=== PATIENT | female | born 1960 | race Caucasian/White ===

== ENCOUNTER 2017-04-13 13:08 | Observation (INO) ==
--- NOTE | 2017-04-13 13:29 | Emergency Department Note ---
Disposition Clinical Impression: Chest pain Qualifiers: Chest pain type: unspecified Qualified Code(s): R07.9 - Chest pain, unspecified Disposition: Admitted As Inpatient Condition: Fair Forms: ED Satisfaction Letter Time of Disposition: 15:23 SOB HPI - General Chief Complaint: ED Shortness of Breath/Dyspnea Stated Complaint: asthma, cough Time Seen by Provider: 04/13/17 13:17 Source: patient, EMS Limitations: no limitations Nursing Notes Reviewed: Yes Vital Signs Reviewed: Yes - History of Present Illness 56-year-old female history of obesity, hyperlipidemia, former smoker, presents with chest pain at rest for the last several weeks, worse in the last few days, right-sided chest pain radiating to her right arm and right neck. As bad as a 6 out of 10 currently a 3 out of 10. Patient denies shortness of breath, fevers chills, does have a history of asthma but is noted no wheezing, and no respiratory symptoms. Patient is no history of blood clots or OCP use, no recent travel. Only on exam patient is a very flat affect and she is a difficult historian. Pt Subjective Complaint: chest pain Onset (ago): hour(s) Severity: mild Consistency/Duration: intermittent Improves with: nothing Worsens with: nothing Known history of: asthma, other (HLD) Associated symptoms: Reports: chest pain. Denies: pain with inspiration, fever , cough, wheezing, sputum production - Related Data Home Medications Medication Instructions Recorded Confirmed Albuterol Sulfate [Albuterol 2 puff IH Q4H PRN 06/16/16 06/16/16 Inhaler] Benzonatate [Tessalon] 200 mg PO TID 06/16/16 06/16/16 Benztropine [Cogentin] 1 mg PO TID 06/16/16 06/16/16 Estrogens, Conjugated [Premarin] 0.45 mg PO DAILY 06/16/16 06/16/16 Levothyroxine [Synthroid] 88 mcg PO DAILY 06/16/16 06/16/16 Loratadine [Claritin] 10 mg PO DAILY 06/16/16 06/16/16 Montelukast [Singulair] 10 mg PO DAILY 06/16/16 06/16/16 Multivitamin [Multi-Day Vitamins] 1 tab PO DAILY 06/16/16 06/16/16 Naproxen [Naprosyn] 500 mg PO BID 06/16/16 06/16/16 Pantoprazole Sodium [Protonix] 40 mg PO DAILY 06/16/16 06/16/16 RisperiDONE [Risperdal] 3 mg PO TID 06/16/16 06/16/16 clonazePAM [Klonopin] 0.5 mg PO TID 06/16/16 06/16/16 hydrOXYzine HCl [Hydroxyzine HCl] 25 mg PO TID 06/16/16 06/16/16 Previous Rx's Medication Instructions Recorded Ciprofloxacin [Cipro] 500 mg PO BIDAC #10 tablet 06/19/16 predniSONE [PredniSONE] 30 mg PO DAILY #5 tablet 06/19/16 Albuterol Sulfate [Albuterol 2 puff IH Q4HR #1 hfa.aer.ad 12/05/16 Inhaler] Azithromycin [Azithromycin 6-Tab 250 mg PO PER PKG DI #6 tab 12/05/16 Pack] predniSONE [Prednisone] 50 mg PO DAILY #5 tablet 12/05/16 Allergies Allergy/AdvReac Type Severity Reaction Status Date / Time Penicillins Allergy Anaphylaxis Verified 06/16/16 11:48 aspirin AdvReac Gastrointestinal Verified 02/03/17 12:26 Upset haloperidol AdvReac Seizure Verified 02/16/17 12:21 All systems ED: reviewed and negative except as stated. Constitutional: Denies: fever, chills Cardiovascular: Reports: chest pain Respiratory: Denies: cough, dyspnea Gastrointestinal: Reports: as per HPI, nausea. Denies: abdominal pain Genitourinary: Denies: urgency Musculoskeletal: Denies: back pain Integumentary: Denies: rash, abrasion Neurological: Denies: headache Psychiatric: Denies: anxiety Past Medical History - Past Medical History Attestation: Yes The following information was validated with the patient. Source: patient Medical history: Reports: arthritis, asthma, COPD, hyperlipidemia, seizures Surgical history: Reports: cholecystectomy, hysterectomy Psychiatric history: Reports: anxiety, bipolar, depression - Social History Smoking Status: Former smoker Smokeless Tobacco Status: No Alcohol use: Reports: none Drug use: Reports: none Physical Exam Constitutional: alert and oriented, in NAD, vital signs reviewed and wnl Neck: normal inspection, neck is supple, no JVD Resp: normal chest inspection, CTA bilaterally, no resp distress, no wheezes/ rales/rhonchi CV: RRR, no murmurs/gallops/rubs, S1 and S2 heard Extremity: +2 bilateral radial and posterial tibial pulses, no pedal edema GI: normal inspection, Soft, NTND, no peritoneal signs, no palpable abdominal aortic aneurysm Back: normal inspection, no tenderness to palpation Neuro: A&O3, no gross motor or sensory deficits bilaterally\ Psych: flat affect MSK: normal inspection, bilateral UE and LE with normal ROM Skin: No rashes, skin warm, dry, intacts - General Limitations: no limitations General appearance: alert, in no apparent distress Course Course Narrative: 56-year-old female with chest pain at rest, heart score is 4, for history age risk factors, she does not meet perc criteria because of her age, therefore we will get a d-dimer reassessed - Reevaluation(s) Reevaluation #1: D-dimer negative, admitting to medicine service for chest pain rule out. Time: 15:23 Vital Signs Temperature 98.4 F 04/13/17 13:09 Pulse Rate 80 04/13/17 13:09 Respiratory Rate 16 04/13/17 13:09 Blood Pressure 115/84 04/13/17 13:09 O2 Sat by Pulse Oximetry 98 04/13/17 13:09 Temperature 98.4 F 04/13/17 13:09 Pulse Rate 80 04/13/17 13:09 Respiratory Rate 16 04/13/17 13:09 Blood Pressure 115/84 04/13/17 13:09 O2 Sat by Pulse Oximetry 98 04/13/17 13:09 Oxygen Delivery Oxygen Delivery Room Air Shortness of Breath/Dyspnea - [facility] Narrative Medical decision making narrative: 56-year-old female admitted to chest pain rule out to Dr. Marquez in stable condition at the time of ED disposition no ischemic changes troponin negative D dimer negative - Differential Diagnosis Likely: acute exacerbation of chronic obstructive airways disease, congestive heart failure, pneumonia, pulmonary embolism - Medical Records Medical records reviewed: Yes I reviewed the patient's medical records. - Lab Data Lab results reviewed: Yes I reviewed the patient's lab results. Result diagrams: 04/13/17 13:38 04/13/17 13:38 Lab Results 04/13/17 04/13/17 04/13/17 Range/Units 13:38 13:38 13:38 WBC 12.2 H (4.3-11.1) K/mcL RBC 4.29 (3.82-4.97) M/mcL Hgb 13.4 (11.5-15.4) g/dL Hct 41.2 (35.3-44.9) % MCV 96.0 (83.0-100.0) fL MCH 31.2 (28.0-33.3) pg MCHC 32.5 (31.6-35.5) g/dL RDW 12.5 (11.5-14.5) % Plt Count 223 (140-400) K/mcL MPV 10.6 (9.4-12.4) fL Immature Gran % 0.4 (0-4) % Seg Neutrophils % 74.5 % Lymphocytes % 17.6 % Monocytes % 6.1 % Eosinophils % 1.2 % Basophils % 0.2 % Neutrophils # 9.1 H (1.6-8.9) K/mcL Lymphocytes # 2.2 (0.6-4.6) K/mcL Monocytes # 0.7 (0.0-1.3) K/mcL Eosinophils # 0.2 (0.0-0.6) K/mcL Basophils # 0.0 (0.0-0.2) K/mcL D-Dimer 289 (0-500) ng/mLFEU Sodium (136-145) mEq/L Potassium (3.5-4.5) mEq/L Chloride (98-109) mEq/L Carbon Dioxide (19-29) mEq/L BUN (7-20) mg/dL Creatinine (0.57-1.11) mg/dL Est GFR ( Amer) (> 60) Est GFR (Non-Af Amer) (> 60) BUN/Creatinine Ratio (6-26) Glucose (70-99) mg/dL Calculated Osmolality (280-300) Calcium (8.6-10.8) mg/dL Troponin I (0-0.03) ng/mL B-Natriuretic Peptide 45 (0-100) pg/mL 04/13/17 04/13/17 Range/Units 13:38 13:38 WBC (4.3-11.1) K/mcL RBC (3.82-4.97) M/mcL Hgb (11.5-15.4) g/dL Hct (35.3-44.9) % MCV (83.0-100.0) fL MCH (28.0-33.3) pg MCHC (31.6-35.5) g/dL RDW (11.5-14.5) % Plt Count (140-400) K/mcL MPV (9.4-12.4) fL Immature Gran % (0-4) % Seg Neutrophils % % Lymphocytes % % Monocytes % % Eosinophils % % Basophils % % Neutrophils # (1.6-8.9) K/mcL Lymphocytes # (0.6-4.6) K/mcL Monocytes # (0.0-1.3) K/mcL Eosinophils # (0.0-0.6) K/mcL Basophils # (0.0-0.2) K/mcL D-Dimer (0-500) ng/mLFEU Sodium 140 (136-145) mEq/L Potassium 3.8 (3.5-4.5) mEq/L Chloride 103 (98-109) mEq/L Carbon Dioxide 31 H (19-29) mEq/L BUN 19 (7-20) mg/dL Creatinine 0.75 (0.57-1.11) mg/dL Est GFR ( Amer) > 60 (> 60) Est GFR (Non-Af Amer) > 60 (> 60) BUN/Creatinine Ratio 25 (6-26) Glucose 104 H (70-99) mg/dL Calculated Osmolality 293 (280-300) Calcium 9.6 (8.6-10.8) mg/dL Troponin I 0.00 (0-0.03) ng/mL B-Natriuretic Peptide (0-100) pg/mL - Radiology Data Radiology results reviewed: Yes I reviewed the patient's radiology results. Chest X-Ray 04/13/17 13:30 IMPRESSION: No acute process. D/ / Tejas Sawyer MD / Tejas Sawyer MD Interpreting Provider: Tejas Sawyer MD - EKG Data EKG attestation: Yes I reviewed and interpreted this EKG. EKG shows normal: Reports: sinus rhythm Rate: Reports: normal (76 bpm 167 PRQS [address] segment elevations or depressions.)
[2017-04-13 13:43] LABS: Basophils % 0.2 %; Eosinophils # 0.2 K/mcL (0.0-0.6); Eosinophils % 1.2 %; Hematocrit 41.2 % (35.3-44.9); Hemoglobin 13.4 g/dL (11.5-15.4); Immature Granulocytes % 0.4 % (0-4); Lymphocytes # 2.2 K/mcL (0.6-4.6); Lymphocytes % 17.6 %; Mean Corpuscular HGB Conc 32.5 g/dL (31.6-35.5); Mean Corpuscular Hemoglobin 31.2 pg (28.0-33.3); Mean Platelet Volume 10.6 fL (9.4-12.4); Monocytes # 0.7 K/mcL (0.0-1.3); Monocytes % 6.1 %; Neutrophils # 9.1 K/mcL (1.6-8.9); Platelet Count 223 K/mcL (140-400); Red Blood Count 4.29 M/mcL (3.82-4.97); Red Cell Distribution Width 12.5 % (11.5-14.5); Segmented Neutrophils % 74.5 %
[2017-04-13 13:59] LABS: BUN/Creatinine Ratio 25 (6-26); Blood Urea Nitrogen 19 mg/dL (7-20); Calcium 9.6 mg/dL (8.6-10.8); Carbon Dioxide 31 mEq/L (19-29); Chloride 103 mEq/L (98-109); Glucose 104 mg/dL (70-99); Osmolality,Calculated 293 (280-300); Potassium 3.8 mEq/L (3.5-4.5); Sodium 140 mEq/L (136-145); eGFR For African Americans > 60 (> 60); eGFR For Non-African Americans > 60 (> 60)
--- NOTE | 2017-04-13 14:55 | Emergency Department Note ---
START Narrative - START START: I examined this patient and my medical decision-making was reviewed with the PROPERTY TECHNICIAN/PA/Advanced Practice Nurse/Resident Physician. I agree with the documented findings, disposition and treatment plan as described except to the extent set forth below. ED attending note: Patient seen with emergency medicine resident Dr. SANCHES. Please see a copy of his note for details of the H&P, evaluation, management and disposition of this patient. We independently had [id number] contact with the patient Briefly: A 56-year-old female with a flat affect history of asthma complaining of chest discomfort. Heart school about 4. EKG shows no acute ischemic changes. Troponin and d-dimer and chest x-ray are pending. Disposition pending.
[2017-04-13] MEDS ORDERED: Nitroglycerin 0.4 MG TAB.SUBL SL ONE (15:14)
[2017-04-13] MEDS ORDERED: Acetaminophen 325 MG TABLET PO PRN (16:27)
[2017-04-13] MEDS ORDERED: Naloxone 0.4 MG/ML INJ IVP PRN (16:27)
[2017-04-13] MEDS ORDERED: hydrOXYzine pamoate 25 MG CAPSULE PO PRN (16:37)
[2017-04-13] MEDS ORDERED: Ipratropium/Albuterol Neb 3 ML IH PRN (16:39)
[2017-04-13] MEDS: *HR* Heparin 5,000 UNIT/ML VIAL SQ SCH (17:51)
--- NOTE | 2017-04-13 19:23 | Internal Med History&Physical ---
Date of Encounter: 04/13/17 Time of Encounter: 16:00 Assessment and Plan (1) Asthma attack Current visit: Yes Status: Acute Patient has a one episode of shortness of breath. Relieved after treatment. No wheezing on exam. Will continue home asthma medications. (2) Bipolar disorder Current visit: Yes Status: Acute Continue home medications Qualifiers: Active/Remission status: in full remission Most recent bipolar episode type : mixed Qualified Code(s): F31.78 - Bipolar disorder, in full remission, most recent episode mixed (3) DVT prophylaxis Current visit: Yes Status: Acute Heparin subcutaneously (4) Chest pain Current visit: Yes Status: Acute Patient has a chest pain on the right chest wall. Tenderness on palpation. Consider skeletal muscular pain. However, need to rule out other severe conditions. - Chest x-ray and EKG unremarkable. - We will place patient on continuous cardiac monitoring. - track 3 sets of troponin Qualifiers: Chest pain type: intercostal pain Qualified Code(s): R07.82 - Intercostal pain Internal Medicine - H&P: HPI Chief complaint: Chest pain Admitted From: Home Plans for Post Hospital Care: Home History of present illness: Ms. Santana is a 56 year old female present to ER for chest pain and shortness of breath. Patient has history of asthma COPD. Patient said that the chest pain and shortness of breath started from this afternoon 12:30 pm. EMS was called and the patient was treated with nebulizer. Patient was sent to ER. Patient shortness of breath has improved after treatment, but still complaining of chest pain. The pain is located on the right side of chest, sharp, radiated to her right arm, inducible by palpation on right chest wall. Patient has nausea but no vomiting. Denies fibrosis. Patient has a mild cough with a whitish sputum. Patient denies fever, sore throat, and runny nose. Past Med Surg Social Fam HX - Past Medical History Medical history: arthritis, asthma, COPD, hyperlipidemia, seizures Psychiatric history: anxiety, bipolar, depression - Past Surgical History Surgical History: cholecystectomy, hysterectomy - Social History Smoking Status: Former smoker Smokeless Tobacco Status: No Alcohol use: none Drug use: none - Family History Mother Living Status: Hx Family Endocrine Disorder: Yes ("kidney disease") Internal Medicine - H&P: Meds Benztropine [Cogentin] 1 mg PO TID 06/16/16 [History] Estrogens, Conjugated [Premarin] 0.45 mg PO DAILY 06/16/16 [History] Levothyroxine [Synthroid] 88 mcg PO QAM 06/16/16 [History] Loratadine [Claritin] 10 mg PO DAILY 06/16/16 [History] Montelukast [Singulair] 10 mg PO QPM 06/16/16 [History] Multivitamin [Multi-Day Vitamins] 1 tab PO DAILY 06/16/16 [History] Pantoprazole Sodium [Protonix] 40 mg PO DAILY 06/16/16 [History] RisperiDONE [Risperdal] 3 mg PO BID 06/16/16 [History] clonazePAM [Klonopin] 0.5 mg PO TID 06/16/16 [History] hydrOXYzine HCl [Hydroxyzine HCl] 25 mg PO TID PRN 06/16/16 [History] Acetaminophen [Tylenol] 1,000 mg PO TID 04/13/17 [History] Albuterol Neb [Proventil Neb] 2.5 mg IH TID 04/13/17 [History] Albuterol Sulfate [Albuterol Inhaler] 2 puff IH Q4HR PRN 04/13/17 [History] Budesonide/Formoterol 160/4.5 [Symbicort 160/4.5] 2 puff IH BIDR 04/13/17 [ History] Cyclosporine [Restasis] 1 each OP BID 04/13/17 [History] Naproxen [Naprosyn] 250 mg PO BID 04/13/17 [History] Allergies Penicillins Allergy (Verified 06/16/16 11:48) Anaphylaxis aspirin Adverse Reaction (Verified 02/03/17 12:26) Gastrointestinal Upset caffeine Adverse Reaction (Verified 04/13/17 16:25) Itching haloperidol Adverse Reaction (Verified 02/16/17 12:21) Seizure All Systems PM: A 10-system review of systems was performed and is negative for pertinent findings except as documented above in the HPI. - Constitutional Vitals: Temp Pulse Resp BP Pulse Ox 98.7 F 86 16 133/87 93 04/13/17 16:24 04/13/17 16:24 04/13/17 16:24 04/13/17 16:24 04/13/17 16:24 General appearance: Present: A&O X 3, no acute distress, answers questions appropriately - Head Head exam: Present: atraumatic, normocephalic - Eye Eye exam: Present: PERRL, conjuntiva pink, sclera anicteric Pupils: Present: PERRL - Neck Neck exam general surgery: Present: supple, trachea midline. Absent: lymphadenopathy - Respiratory Respiratory exam: Present: chest wall tenderness, CTAB. Absent: accessory muscle use, rales, rhonchi, wheezes - Cardiovascular Cardiovascular exam: Present: RRR, +S1, +S2. Absent: diastolic murmur, gallop, rubs, systolic murmur - GI/Abdominal GI/Abdominal exam: Present: normal bowel sounds, soft, no peritoneal signs. Absent: distended, tenderness - Extremities Exam Extremities exam: Present: warm, radial pulses palpable and symetrical. Absent : calf tenderness, cyanotic, pedal edema - Neurological Exam Neurological exam: Present: CN II-XII intact, oriented X3, no focal deficits. Absent: pronater drift, facial droop, speech deficit - Skin Skin exam: Present: dry, intact Internal Med - H&P Results - Labs CBC & Chem 7: 04/13/17 13:38 04/13/17 13:38
[2017-04-13] MEDS: clonazePAM 0.5 MG TABLET PO SCH (21:39)
[2017-04-13] MEDS: RisperiDAL 3 MG TABLET PO SCH (21:47)
[2017-04-13] MEDS: Budesonide/Formoterol 160/4.5 MDI IH SCH (23:01)
[2017-04-13] MEDS: Albuterol 2.5 MG/3 ML NEBULIZER IH SCH (23:02)
[2017-04-14 02:13] LABS: Basophils % 0.3 %; Eosinophils # 0.2 K/mcL (0.0-0.6); Eosinophils % 2.2 %; Hematocrit 39.9 % (35.3-44.9); Immature Granulocytes % 0.3 % (0-4); Lymphocytes # 2.4 K/mcL (0.6-4.6); Mean Corpuscular HGB Conc 32.6 g/dL (31.6-35.5); Mean Corpuscular Hemoglobin 31.3 pg (28.0-33.3); Mean Corpuscular Volume 95.9 fL (83.0-100.0); Monocytes # 0.5 K/mcL (0.0-1.3); Monocytes % 7.2 %; Platelet Count 215 K/mcL (140-400); Red Blood Count 4.16 M/mcL (3.82-4.97); Red Cell Distribution Width 12.4 % (11.5-14.5)
[2017-04-14 02:26] LABS: BUN/Creatinine Ratio 20 (6-26); Blood Urea Nitrogen 14 mg/dL (7-20); Calcium 9.3 mg/dL (8.6-10.8); Carbon Dioxide 29 mEq/L (19-29); Chloride 105 mEq/L (98-109); Glucose 89 mg/dL (70-99); Osmolality,Calculated 288 (280-300); Potassium 3.9 mEq/L (3.5-4.5); Sodium 139 mEq/L (136-145); eGFR For African Americans > 60 (> 60); eGFR For Non-African Americans > 60 (> 60)
[2017-04-14] MEDS ORDERED: Ondansetron 4 MG/2 ML VIAL IVP PRN (03:52)
[2017-04-14] MEDS: *HR* Heparin 5,000 UNIT/ML VIAL SQ SCH ×2 (06:06→18:48)
[2017-04-14] MEDS: Budesonide/Formoterol 160/4.5 MDI IH SCH ×2 (08:52→20:20)
[2017-04-14] MEDS: Albuterol 2.5 MG/3 ML NEBULIZER IH SCH ×3 (08:53→20:31)
[2017-04-14] MEDS: RisperiDAL 3 MG TABLET PO SCH ×2 (10:11→21:08)
[2017-04-14] MEDS: Multivit/Ca/Min/Fe/FA 1 TAB TABLET PO SCH (10:11)
[2017-04-14] MEDS: Loratadine 10 MG TABLET PO SCH (10:11)
[2017-04-14] MEDS: clonazePAM 0.5 MG TABLET PO SCH ×3 (10:12→21:09)
--- NOTE | 2017-04-14 17:36 | Internal Med Progress Note ---
Date of Encounter: 04/14/17 Time of Encounter: 17:33 - Assessment and plan (1) Chest pain Current Visit: Yes Status: Acute Assessment and plan: Patient had a chest pain Of days back. It was atypical chest pain. LUCILLE: 0 Hospitalized for worsening shortness of breath, cough and chest pain. Likely COPD exacerbation. 3 troponins negative. Echocardiogram ordered and pending. Plan: Will follow echocardiogram. Qualifiers: Chest pain type: intercostal pain Qualified Code(s): R07.82 - Intercostal pain (2) Acute exacerbation of chronic obstructive airways disease Current Visit: No Status: Chronic Assessment and plan: Likely COPD exacerbation. On antibiotics: Levofloxacin 750 mg by mouth. Initial steroids. Inhale bronchodilators. Plan: We will continue to monitor closely. (3) Bipolar disorder Current Visit: Yes Status: Acute Assessment and plan: We will resume home medications. Qualifiers: Active/Remission status: in full remission Most recent bipolar episode type : mixed Qualified Code(s): F31.78 - Bipolar disorder, in full remission, most recent episode mixed (4) DVT prophylaxis Current Visit: Yes Status: Acute Assessment and plan: heparin Medical decision making: Patient has mild to moderate risk of worsening in spite of being on appropriate treatment due to underlying comorbidities - Subjective Interval history: Patient seen and examined. Chart reviewed. Patient denies chest pain, shortness of breath, abdominal pain, nausea, vomiting , diarrhea or dizziness. - Constitutional Vitals: Temp Pulse Resp BP Pulse Ox 97.9 F 74 16 118/67 95 04/14/17 14:38 04/14/17 14:38 04/14/17 15:54 04/14/17 14:38 04/14/17 15:54 General appearance: Present: A&O X 3, no acute distress, answers questions appropriately - Head Head exam: Present: atraumatic, normocephalic - Eye Eye exam: Present: PERRL, conjuntiva pink, sclera anicteric Pupils: Present: PERRL - Neck Neck exam general surgery: Present: supple, trachea midline. Absent: lymphadenopathy - Respiratory Respiratory exam: Present: CTAB. Absent: accessory muscle use, rales, rhonchi, wheezes - Cardiovascular Cardiovascular exam: Present: RRR, +S1, +S2. Absent: diastolic murmur, gallop, rubs, systolic murmur - GI/Abdominal GI/Abdominal exam: Present: normal bowel sounds, soft, no peritoneal signs. Absent: distended, tenderness - Extremities Exam Extremities exam: Present: warm, radial pulses palpable and symetrical. Absent : calf tenderness, cyanotic, pedal edema - Neurological Exam Neurological exam: Present: CN II-XII intact, oriented X3, no focal deficits. Absent: pronater drift, facial droop, speech deficit - Skin Skin exam: Present: dry, intact Internal Medicine: Result - Labs CBC & Chem 7: 04/14/17 01:45 04/14/17 01:45 Labs: Short CBC 04/14/17 Range/Units 01:45 WBC 7.1 (4.3-11.1) K/mcL Hgb 13.0 (11.5-15.4) g/dL Hct 39.9 (35.3-44.9) % Plt Count 215 (140-400) K/mcL Neutrophils # 4.0 (1.6-8.9) K/mcL BMP 04/14/17 01:45 Sodium 139 Potassium 3.9 Chloride 105 Carbon Dioxide 29 BUN 14 Creatinine 0.71 Glucose 89 Calcium 9.3 Cardiac Enzymes 04/13/17 04/14/17 Range/Units 19:32 01:45 Troponin I 0.00 0.00 (0-0.03) ng/mL - ABG Interpretation ABG results: PT/INR, D-dimer D-Dimer 289 ng/mLFEU (0-500) 04/13/17 13:38 Consult Discharge Plan - Plan Referrals: Janeen Patel MD [Primary Care Provider] -
[2017-04-14] MEDS: levoFLOXacin 750 MG TABLET PO SCH (18:48)
[2017-04-15] MEDS: *HR* Heparin 5,000 UNIT/ML VIAL SQ SCH (05:06)
[2017-04-15] MEDS: RisperiDAL 3 MG TABLET PO SCH (07:45)
[2017-04-15] MEDS: clonazePAM 0.5 MG TABLET PO SCH (07:45)
[2017-04-15] MEDS: Multivit/Ca/Min/Fe/FA 1 TAB TABLET PO SCH (07:45)
[2017-04-15] MEDS: levoFLOXacin 750 MG TABLET PO SCH (07:45)
[2017-04-15] MEDS: Loratadine 10 MG TABLET PO SCH (07:45)
[2017-04-15] MEDS: Budesonide/Formoterol 160/4.5 MDI IH SCH (08:24)
[2017-04-15] MEDS: Albuterol 2.5 MG/3 ML NEBULIZER IH SCH (08:24)
[2017-04-15 11:13] VITALS: BP 120/86
--- NOTE | 2017-04-15 11:40 | Discharge Summary ---
Date of Encounter: 04/15/17 Time of Encounter: 11:38 - Discharge Diagnosis (1) Chest pain Priority: Primary Status: Acute Qualifiers: Chest pain type: intercostal pain Qualified Code(s): R07.82 - Intercostal pain (2) Acute exacerbation of chronic obstructive airways disease Priority: Primary Status: Chronic (3) Bipolar disorder Priority: Secondary Status: Acute Qualifiers: Active/Remission status: in full remission Most recent bipolar episode type : mixed Qualified Code(s): F31.78 - Bipolar disorder, in full remission, most recent episode mixed (4) DVT prophylaxis Priority: Secondary Status: Acute - Discharge Medications Prescriptions: levoFLOXacin [Levaquin] 750 mg PO DAILY #4 tab Home Medications: Benztropine [Cogentin] 1 mg PO TID 06/16/16 [History] Estrogens, Conjugated [Premarin] 0.45 mg PO DAILY 06/16/16 [History] Levothyroxine [Synthroid] 88 mcg PO QAM 06/16/16 [History] Loratadine [Claritin] 10 mg PO DAILY 06/16/16 [History] Montelukast [Singulair] 10 mg PO QPM 06/16/16 [History] Multivitamin [Multi-Day Vitamins] 1 tab PO DAILY 06/16/16 [History] Pantoprazole Sodium [Protonix] 40 mg PO DAILY 06/16/16 [History] RisperiDONE [Risperdal] 3 mg PO BID 06/16/16 [History] clonazePAM [Klonopin] 0.5 mg PO TID 06/16/16 [History] hydrOXYzine HCl [Hydroxyzine HCl] 25 mg PO TID PRN 06/16/16 [History] Acetaminophen [Tylenol] 1,000 mg PO TID 04/13/17 [History] Albuterol Neb [Proventil Neb] 2.5 mg IH TID 04/13/17 [History] Albuterol Sulfate [Albuterol Inhaler] 2 puff IH Q4HR PRN 04/13/17 [History] Budesonide/Formoterol 160/4.5 [Symbicort 160/4.5] 2 puff IH BIDR 04/13/17 [ History] Cyclosporine [Restasis] 1 each OP BID 04/13/17 [History] Naproxen [Naprosyn] 250 mg PO BID 04/13/17 [History] levoFLOXacin [Levaquin] 750 mg PO DAILY #4 tab 04/15/17 [Rx] Allergies/Adverse Reactions: Allergies Penicillins Allergy (Verified 06/16/16 11:48) Anaphylaxis aspirin Adverse Reaction (Verified 02/03/17 12:26) Gastrointestinal Upset caffeine Adverse Reaction (Verified 04/13/17 16:25) Itching haloperidol Adverse Reaction (Verified 02/16/17 12:21) Seizure Procedures/tests Complete & Pending: Procedures Performed prior 72 hours Category Date Time Status CT angio neck [CT] Routine Cat Scan 04/15/17 09:38 Completed CTA chest [CT angio chest] [CT] Routine Cat Scan 04/15/17 09:38 Completed EV echocardiogram Routine Y 04/14/17 11:15 Completed Date of admission: 04/13/17 15:20 Primary care physician: Janeen Patel, Discharging clinician: Jason Jones - Patient Status Disposition: Home, Self-Care Condition: Fair Functional capacity at discharge: independent ambulation Overall status at discharge: patient is progressing back to baseline - Discharge Instructions Follow Up With: Janeen Patel MD [Primary Care Provider] - - Diet and Activity Activity: increase activity as tolerated Diet: low fat, low cholesterol, low salt diet Interval History: Ms. Santana is a 56 year old female present to ER for chest pain and shortness of breath. Patient has history of asthma COPD. Patient said that the chest pain and shortness of breath started from this afternoon 12:30 pm. EMS was called and the patient was treated with nebulizer. Patient was sent to ER. Patient shortness of breath has improved after treatment, but still complaining of chest pain. The pain is located on the right side of chest, sharp, radiated to her right arm, inducible by palpation on right chest wall. Patient has nausea but no vomiting. Denies fibrosis. Patient has a mild cough with a whitish sputum. Patient denies fever, sore throat, and runny nose. Hospital course: patient was hospitalized. started on Levofloxacin, Inhaled steroids and bronchodialators. she responded well to treatment. In view of chest pain, she underwent ECHO and noted that she has atheresclerotic disease of aorta and CCA. CTA of aorta and neck arteries ordered. this study was negative for any significant obstructive lesions. plan home today levofloxacin for 4 days continue ICS and BDAs. follow up with PCP in 1-2 weeks all questions answered. - Time Spent with Patient Total time spent providing and/or coordinating discharge services: - Constitutional Vitals: Temp Pulse Resp BP Pulse Ox 97.7 F 96 18 120/86 98 04/15/17 11:11 04/15/17 11:11 04/15/17 11:11 04/15/17 11:11 04/15/17 11:11 General appearance: Present: A&O X 3, no acute distress, answers questions appropriately - Head Head exam: Present: atraumatic, normocephalic - Eye Eye exam: Present: PERRL, conjuntiva pink, sclera anicteric Pupils: Present: PERRL - Neck Neck exam general surgery: Present: supple, trachea midline. Absent: lymphadenopathy - Respiratory Respiratory exam: Present: CTAB. Absent: accessory muscle use, rales, rhonchi, wheezes - Cardiovascular Cardiovascular exam: Present: RRR, +S1, +S2. Absent: diastolic murmur, gallop, rubs, systolic murmur - GI/Abdominal GI/Abdominal exam: Present: normal bowel sounds, soft, no peritoneal signs. Absent: distended, tenderness - Extremities Exam Extremities exam: Present: warm, radial pulses palpable and symetrical. Absent : calf tenderness, cyanotic, pedal edema - Neurological Exam Neurological exam: Present: CN II-XII intact, oriented X3, no focal deficits. Absent: pronater drift, facial droop, speech deficit - Skin Skin exam: Present: dry, intact
--- NOTE | 2017-04-15 15:30 | Electrocardiograph Report ---
[facility] Test Date: 2017-04-13 Pat Name: Carolin Santana Department: 105 Room: [facility] Gender: F Complaint Inspector: : 1960 Requested By: Min Reagan Order Number: [id number] Reading MD: Eddie Cardenas MD Measurements Intervals [place] Rate: 76 P: 42 [place]: 167 QRS: -22 QRSD: 90 T: 23 QT: 387 QTc: 418 Interpretive Statements SINUS RHYTHM BORDERLINE LEFT AXIS DEVIATION [QRS AXIS < -20] LOW QRS VOLTAGE IN PRECORDIAL LEADS [QRS DEFLECTION < 1.0 mV IN CHEST LEADS] Electronically Signed On 04-15-2017 15:28:36 EDT by Eddie Cardenas MD
== END 2017-04-15 13:54 | disposition home or self-care (01) ==
LOC: EMEROO 13:08 → 3NENU 13:08
PROVIDERS: ADMIT Internal Medicine; ATTEND Internal Medicine

== ENCOUNTER 2018-07-19 11:07 | Inpatient (IN) ==
--- NOTE | 2018-07-19 11:27 | Emergency Department Note ---
Disposition Clinical Impression: Elevated troponin, Psychiatric illness, Altered mental status Disposition: Admitted As Inpatient Condition: Fair Altered Mental Status HPI - General Chief Complaint: ED Altered Mental Status Stated Complaint: AMS Time Seen by Provider: 07/19/18 11:15 Source: family (Patient ) Mode of arrival: EMS Limitations: altered mental status Nursing Notes Reviewed: Yes Vital Signs Reviewed: Yes - History of Present Illness HPI Narrative: Patient is a 57-year-old female [facility] for "altered mental status" the patient's states that she was "just not acting herself today" and called EMS for transport. EMS stated they were unable to obtain any further history from the patient's for the patient, and nursing staff state that the patient has only verbalized her name and date of -as well stating that she has a history of anxiety. Patient is known to have a history of catatonic schizophrenia was similar episodes in the past. Upon initial examination the patient is sitting upright in hospital bed her eyes are open and she will make eye contact when verbally prompted. Otherwise the patient is staring straight ahead without significant engagement to her environment. The patient answers questioning with intermittent head nods after several problems. The patient nodded affirmation of headache, chest pain, and shortness of breath and gave negative affirmation by shaking her head when asked about abdominal pain, numbness or tingling, or blurred vision. The patient did not respond to further review of systems questioning. MD complaint: altered mental status Onset (ago): day(s) Timing confirmed by: family member Pain Severity: unable Consistency of Symptoms: unknown Context: unknown Associated symptoms: Reports: chest pain, headaches, shortness of breath - Related Data Home Medications Medication Instructions Recorded Confirmed Levothyroxine [Synthroid] 88 mcg PO QAM 06/16/16 07/19/18 Loratadine [Claritin] 10 mg PO DAILY 06/16/16 07/19/18 Montelukast [Singulair] 10 mg PO QPM 06/16/16 07/19/18 Multivitamin [Multi-Day Vitamins] 1 tab PO DAILY 06/16/16 07/19/18 Acetaminophen [Tylenol] 1,000 mg PO TID 04/13/17 07/19/18 Albuterol Neb [Proventil Neb] 2.5 mg IH TID 04/13/17 07/19/18 Albuterol Sulfate [Albuterol 2 puff IH Q4HR PRN 04/13/17 07/19/18 Inhaler] Budesonide/Formoterol 160/4.5 2 puff IH BIDR 04/13/17 07/19/18 [Symbicort 160/4.5] Cyclosporine [Restasis] 1 drop BOTH EYES BID 04/13/17 07/19/18 Benztropine Mesylate 1 mg PO BID 07/19/18 07/19/18 Buspirone HCl [Buspar] 5 mg PO BID 07/19/18 07/19/18 Estrogens, Conjugated [Premarin] 0.3 mg PO DAILY 07/19/18 07/19/18 Pantoprazole Sodium [Protonix] 40 mg PO DAILY 07/19/18 07/19/18 hydrOXYzine HCl [Hydroxyzine HCl] 25 mg PO TID PRN 07/19/18 07/19/18 risperiDONE [RisperDAL] 3 mg PO BID 07/19/18 07/19/18 Allergies Allergy/AdvReac Type Severity Reaction Status Date / Time Penicillins Allergy Anaphylaxis Verified 07/03/18 15:12 aspirin AdvReac Gastrointestinal Verified 07/03/18 15:12 Upset caffeine AdvReac Itching Verified 07/03/18 15:12 haloperidol AdvReac Seizure Verified 07/03/18 15:12 Review of Systems: As Per HPI Limitations: ROS unobtainable due to patients medical condition Past Medical History - Past Medical History Medical history: Reports: asthma Surgical history: Reports: cholecystectomy, hysterectomy Psychiatric history: Reports: anxiety, bipolar, depression - Social History Smoking Status: 2nd Hand Smoke Exposure Smokeless Tobacco Status: No Alcohol use: Reports: none Drug use: Reports: none Physical Exam - General Limitations: altered mental status General appearance: alert, obtunded - Head Head exam: atraumatic, normocephalic - Eye Eye exam: Present: normal appearance, PERRL, EOMI. Absent: scleral icterus, conjunctival injection - Chest Chest inspection: Present: symmetric chest wall rise - Respiratory Respiratory exam: Present: normal lung sounds bilaterally. Absent: respiratory distress, accessory muscle use, prolonged expiratory phase - Cardiovascular Cardiovascular exam: Present: regular rate, normal rhythm, normal heart sounds, +S1, +S2. Absent: JVD, +S3, +S4 - Abdominal Exam Abdominal exam: Present: soft, tenderness, normal bowel sounds. Absent: distention, guarding, rebound, rigidity Abdominal tenderness: Present: LUQ, LLQ - Neurological Exam Neurological exam: Present: other (Patient is alert but minimally responsive to verbal stimuli, staring straight ahead with intermittent deformations of questioning with head nods. Pulse, motor, sensation are intact in the 4 extremities bilaterally, cranial nerves II through XII are grossly intact, strength equal bilaterally, there are no noted areas of focal defects.) - Skin Skin exam: Present: warm, dry, intact, normal color. Absent: cyanosis, diaphoresis Course Course Narrative: Patient history, review systems and physical exam are concerning for cardiac or metabolic pathology-especially in the setting of altered mental status given her psychiatric history. CBC, BMP, LFT, LDH, EKG, troponin, chest x-ray and head CT to evaluate for metabolic versus cardiopulmonary and intracranial etiology. Vital Signs Temperature 98.3 F 07/19/18 11:15 Pulse Rate 92 07/19/18 11:15 Respiratory Rate 18 07/19/18 11:15 Blood Pressure 107/83 07/19/18 11:15 O2 Sat by Pulse Oximetry 100 07/19/18 11:15 Temperature 98.3 F 07/19/18 11:15 Pulse Rate 86 07/19/18 17:14 Respiratory Rate 16 07/19/18 17:14 Blood Pressure 111/81 07/19/18 17:14 O2 Sat by Pulse Oximetry 99 07/19/18 17:14 Oxygen Delivery Oxygen Delivery Room Air Altered Mental Status - MDM Narrative Medical decision making narrative: Patient will be admitted for altered mental status. Hospital consulted and accepted admission. - Lab Data Lab results reviewed: Yes I reviewed the patient's lab results. Result diagrams: 07/19/18 12:40 07/19/18 12:40 Lab Results 07/19/18 07/19/18 07/19/18 Range/Units 12:33 12:33 12:33 WBC (4.3-11.1) K/mcL RBC (3.82-4.97) M/mcL Hgb (11.5-15.4) g/dL Hct (35.3-44.9) % MCV (83.0-100.0) fL MCH (28.0-33.3) pg MCHC (31.6-35.5) g/dL RDW (11.5-14.5) % Plt Count (140-400) K/mcL MPV (9.4-12.4) fL Immature Gran % (0-4) % Seg Neutrophils % % Lymphocytes % % Monocytes % % Eosinophils % % Basophils % % Neutrophils # (1.6-8.9) K/mcL Lymphocytes # (0.6-4.6) K/mcL Monocytes # (0.0-1.3) K/mcL Eosinophils # (0.0-0.6) K/mcL Basophils # (0.0-0.2) K/mcL Sodium (136-145) mEq/L Potassium (3.5-5.1) mEq/L Chloride (98-107) mEq/L Carbon Dioxide (23-29) mEq/L BUN (6-20) mg/dL Creatinine (0.60-1.20) mg/dL Est GFR ( Amer) (> 60) Est GFR (Non-Af Amer) (> 60) BUN/Creatinine Ratio (6-26) Glucose (70-105) mg/dL Calculated Osmolality (280-300) Calcium (8.6-10.3) mg/dL Venous Ioniz Calcium (1.15-1.35) mmol/L Phosphorus (2.7-4.5) mg/dL Magnesium (1.6-2.6) mg/dL Total Bilirubin (0.3-1.0) mg/dL Direct Bilirubin (0.0-0.2) mg/dL Indirect Bilirubin (0.0-1.2) mg/dL AST (13-39) Units/L ALT (7-52) Units/L Alkaline Phosphatase (34-104) Units/L Lactate Dehydrogenase (140-271) Units/L Troponin I (< 0.04) ng/mL Serum Total Protein (6.4-8.9) g/dL Albumin (3.5-5.7) g/dL Globulin (2.4-3.5) g/dL Albumin/Globulin Ratio (1.1-2.2) Urine Color Yellow (Yellow) Urine Clarity Clear (Clear) Urine pH 6.0 (5.0-8.0) pH Units Ur Specific [place] >= 1.030 H (1.010-1.025) Urine Protein 100 H (Neg-Trace) mg/dL Urine Glucose (UA) 100 H (Normal) mg/dL Urine Ketones Trace H (Negative) mg/dL Urine Blood Negative (Negative) Urine Nitrite Negative (Negative) Urine Bilirubin Small H (Negative) Urine Urobilinogen Normal (Normal) mg/dL Ur Leukocyte Esterase Small H (Negative) Urine Microscopic RBC 0-3 (0-3) per hpf Urine Microscopic WBC 0-3 (0-3) per hpf Ur Squamous Epith Cells Moderate H (None-Few) per lpf Urine Bacteria Moderate H (None-Few) per hpf Urine Trichomonas Present A (None Seen) Ur Culture Indicated? YES A (NO) Urine Test Negative (Negative) Salicylates (15.0-30.0) mg/dL Urine Opiates Screen Negative (Gmntiz=133) ng/mL Acetaminophen (10-20) mcg/mL Ur Barbiturates Screen Negative (Fyyrqn=026) ng/mL Ur Phencyclidine Scrn Negative (Cutoff=25) ng/mL Ur Amphetamines Screen Negative (Jsvmsi=0060) ng/mL U Benzodiazepines Scrn Negative (Hnnabn=222) ng/mL Urine Cocaine Screen Negative (Cutoff= 300) ng/mL U Marijuana (THC) Screen Negative (Cutoff = 50) ng/mL Ur Drug Screen Interp See Below Ethyl Alcohol (Less than 10) mg/dL 07/19/18 07/19/18 07/19/18 Range/Units 12:40 12:40 12:40 WBC 8.6 (4.3-11.1) K/mcL RBC 4.85 (3.82-4.97) M/mcL Hgb 15.4 (11.5-15.4) g/dL Hct 45.0 H (35.3-44.9) % MCV 92.8 (83.0-100.0) fL MCH 31.8 (28.0-33.3) pg MCHC 34.2 (31.6-35.5) g/dL RDW 12.2 (11.5-14.5) % Plt Count 237 (140-400) K/mcL MPV 10.6 (9.4-12.4) fL Immature Gran % 0.2 (0-4) % Seg Neutrophils % 69.6 % Lymphocytes % 19.6 % Monocytes % 9.9 % Eosinophils % 0.5 % Basophils % 0.2 % Neutrophils # 6.0 (1.6-8.9) K/mcL Lymphocytes # 1.7 (0.6-4.6) K/mcL Monocytes # 0.9 (0.0-1.3) K/mcL Eosinophils # 0.0 (0.0-0.6) K/mcL Basophils # 0.0 (0.0-0.2) K/mcL Sodium 139 (136-145) mEq/L Potassium 3.2 L (3.5-5.1) mEq/L Chloride 98 (98-107) mEq/L Carbon Dioxide 32 H (23-29) mEq/L BUN 15 (6-20) mg/dL Creatinine 0.64 (0.60-1.20) mg/dL Est GFR ( Amer) > 60 (> 60) Est GFR (Non-Af Amer) > 60 (> 60) BUN/Creatinine Ratio 23 (6-26) Glucose 111 H (70-105) mg/dL Calculated Osmolality 290 (280-300) Calcium 9.9 (8.6-10.3) mg/dL Venous Ioniz Calcium (1.15-1.35) mmol/L Phosphorus 2.9 (2.7-4.5) mg/dL Magnesium 2.0 (1.6-2.6) mg/dL Total Bilirubin 0.6 (0.3-1.0) mg/dL Direct Bilirubin 0.1 (0.0-0.2) mg/dL Indirect Bilirubin 0.5 (0.0-1.2) mg/dL AST 14 (13-39) Units/L ALT 13 (7-52) Units/L Alkaline Phosphatase 52 (34-104) Units/L Lactate Dehydrogenase 111 L (140-271) Units/L Troponin I 0.04 H* (< 0.04) ng/mL Serum Total Protein 7.4 (6.4-8.9) g/dL Albumin 4.5 (3.5-5.7) g/dL Globulin 2.9 (2.4-3.5) g/dL Albumin/Globulin Ratio 1.6 (1.1-2.2) Urine Color (Yellow) Urine Clarity (Clear) Urine pH (5.0-8.0) pH Units Ur Specific [place] (1.010-1.025) Urine Protein (Neg-Trace) mg/dL Urine Glucose (UA) (Normal) mg/dL Urine Ketones (Negative) mg/dL Urine Blood (Negative) Urine Nitrite (Negative) Urine Bilirubin (Negative) Urine Urobilinogen (Normal) mg/dL Ur Leukocyte Esterase (Negative) Urine Microscopic RBC (0-3) per hpf Urine Microscopic WBC (0-3) per hpf Ur Squamous Epith Cells (None-Few) per lpf Urine Bacteria (None-Few) per hpf Urine Trichomonas (None Seen) Ur Culture Indicated? (NO) Urine Test (Negative) Salicylates < 2.5 L (15.0-30.0) mg/dL Urine Opiates Screen (Hujmxo=015) ng/mL Acetaminophen < 10 L (10-20) mcg/mL Ur Barbiturates Screen (Gaxnwn=300) ng/mL Ur Phencyclidine Scrn (Cutoff=25) ng/mL Ur Amphetamines Screen (Asrafz=1781) ng/mL U Benzodiazepines Scrn (Nlzaqo=492) ng/mL Urine Cocaine Screen (Cutoff= 300) ng/mL U Marijuana (THC) Screen (Cutoff = 50) ng/mL Ur Drug Screen Interp Ethyl Alcohol < 10 (Less than 10) mg/dL 07/19/18 07/19/18 Range/Units 12:49 16:53 WBC (4.3-11.1) K/mcL RBC (3.82-4.97) M/mcL Hgb (11.5-15.4) g/dL Hct (35.3-44.9) % MCV (83.0-100.0) fL MCH (28.0-33.3) pg MCHC (31.6-35.5) g/dL RDW (11.5-14.5) % Plt Count (140-400) K/mcL MPV (9.4-12.4) fL Immature Gran % (0-4) % Seg Neutrophils % % Lymphocytes % % Monocytes % % Eosinophils % % Basophils % % Neutrophils # (1.6-8.9) K/mcL Lymphocytes # (0.6-4.6) K/mcL Monocytes # (0.0-1.3) K/mcL Eosinophils # (0.0-0.6) K/mcL Basophils # (0.0-0.2) K/mcL Sodium (136-145) mEq/L Potassium (3.5-5.1) mEq/L Chloride (98-107) mEq/L Carbon Dioxide (23-29) mEq/L BUN (6-20) mg/dL Creatinine (0.60-1.20) mg/dL Est GFR ( Amer) (> 60) Est GFR (Non-Af Amer) (> 60) BUN/Creatinine Ratio (6-26) Glucose (70-105) mg/dL Calculated Osmolality (280-300) Calcium (8.6-10.3) mg/dL Venous Ioniz Calcium 1.07 L (1.15-1.35) mmol/L Phosphorus (2.7-4.5) mg/dL Magnesium (1.6-2.6) mg/dL Total Bilirubin (0.3-1.0) mg/dL Direct Bilirubin (0.0-0.2) mg/dL Indirect Bilirubin (0.0-1.2) mg/dL AST (13-39) Units/L ALT (7-52) Units/L Alkaline Phosphatase (34-104) Units/L Lactate Dehydrogenase (140-271) Units/L Troponin I 0.04 H* (< 0.04) ng/mL Serum Total Protein (6.4-8.9) g/dL Albumin (3.5-5.7) g/dL Globulin (2.4-3.5) g/dL Albumin/Globulin Ratio (1.1-2.2) Urine Color (Yellow) Urine Clarity (Clear) Urine pH (5.0-8.0) pH Units Ur Specific [place] (1.010-1.025) Urine Protein (Neg-Trace) mg/dL Urine Glucose (UA) (Normal) mg/dL Urine Ketones (Negative) mg/dL Urine Blood (Negative) Urine Nitrite (Negative) Urine Bilirubin (Negative) Urine Urobilinogen (Normal) mg/dL Ur Leukocyte Esterase (Negative) Urine Microscopic RBC (0-3) per hpf Urine Microscopic WBC (0-3) per hpf Ur Squamous Epith Cells (None-Few) per lpf Urine Bacteria (None-Few) per hpf Urine Trichomonas (None Seen) Ur Culture Indicated? (NO) Urine Test (Negative) Salicylates (15.0-30.0) mg/dL Urine Opiates Screen (Bdcpqc=540) ng/mL Acetaminophen (10-20) mcg/mL Ur Barbiturates Screen (Qfvnrg=262) ng/mL Ur Phencyclidine Scrn (Cutoff=25) ng/mL Ur Amphetamines Screen (Etkrxo=4970) ng/mL U Benzodiazepines Scrn (Mclfhg=608) ng/mL Urine Cocaine Screen (Cutoff= 300) ng/mL U Marijuana (THC) Screen (Cutoff = 50) ng/mL Ur Drug Screen Interp Ethyl Alcohol (Less than 10) mg/dL - Radiology Data Radiology results reviewed: Yes I reviewed the patient's radiology results. Head CT 07/19/18 11:51 IMPRESSION: No acute intracranial abnormality. D/ / Andre Rey MD / Andre Rey MD Interpreting Provider: Andre Rey MD Abdomen/Pelvis CT 07/19/18 12:01 IMPRESSION: No acute intra-abdominal or pelvic finding. Tiny 1 mm nonobstructing stone midportion right kidney is of doubtful clinical significance. Minimal scarring, minimal atelectasis, or minimal dependent edema suggested within the right lung base. D/ / Maynor Haley MD / Maynor Haley MD Interpreting Provider: Maynor Haley MD Chest X-Ray 07/19/18 12:01 IMPRESSION: No evidence for acute cardiopulmonary process. D/ / Rodriguez Hong MD / Rodriguez Hong MD Interpreting Provider: Rodriguez Hong MD - EKG Data EKG attestation: Yes I reviewed and interpreted this EKG. EKG results narrative: Patient EKG shows sinus rhythm ventricular the 94. Verbal 1) and milliseconds, QRS of 94 ms, QT/QTc interval 380/476 respectively. Computer read shows abnormal R-wave progression with late transition and a left anterior fascicular block with borderline T-wave abnormalities. Rate and axis appear normal. There are no significant ST elevations or depressions abnormal T-wave inversions, pathologic Q waves, or any other signs of acute ischemic change. No previous EKG available for comparison at this time. TPA Checklist - LKW: 3-4.5 hrs Add. Warnings/Precautions Patient/family understanding: The patient/family members have been counseled and understood the risk, benefit, and alternatives of treatment. Attestation Statement - Attestation Attestation: I, Daquan Del Real DO, examined this patient [id number] and my medical decision-making was reviewed with Dr. Willem Rendon, Resident Physician. I agree with the documented findings, disposition and treatment plan as described except to the extent set forth below. Please see my progress notes for details.
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
[2018-07-19 12:48] LABS: Basophils % 0.2 %; Eosinophils % 0.5 %; Hemoglobin 15.4 g/dL (11.5-15.4); Immature Granulocytes % 0.2 % (0-4); Lymphocytes # 1.7 K/mcL (0.6-4.6); Lymphocytes % 19.6 %; Mean Corpuscular HGB Conc 34.2 g/dL (31.6-35.5); Mean Corpuscular Hemoglobin 31.8 pg (28.0-33.3); Mean Corpuscular Volume 92.8 fL (83.0-100.0); Mean Platelet Volume 10.6 fL (9.4-12.4); Monocytes # 0.9 K/mcL (0.0-1.3); Monocytes % 9.9 %; Platelet Count 237 K/mcL (140-400); Red Blood Count 4.85 M/mcL (3.82-4.97); Red Cell Distribution Width 12.2 % (11.5-14.5); Segmented Neutrophils % 69.6 %
[2018-07-19 12:53] LABS: VBG Ionized Calcium 1.07 mmol/L (1.15-1.35)
[2018-07-19 13:03] LABS: Bilirubin,Urine Small (Negative); Blood,Urine Negative (Negative); Clarity,Urine Clear (Clear); Color,Urine Yellow (Yellow); Glucose,Urine (UA) 100 mg/dL (Normal); Ketones,Urine Trace mg/dL (Negative); Leukocyte Esterase,Urine Small (Negative); Nitrite,Urine Negative (Negative); Protein,Urine 100 mg/dL (Neg-Trace); Specific Gravity,Urine >= 1.030 (1.010-1.025); Urobilinogen,Urine Normal (Normal)
[2018-07-19 13:08] LABS: Acetaminophen < 10 mcg/mL (10-20); Alanine Aminotransferase 13 Units/L (7-52); Albumin 4.5 g/dL (3.5-5.7); Albumin/Globulin Ratio 1.6 (1.1-2.2); Alkaline Phosphatase 52 Units/L (34-104); Aspartate Amino Transferase 14 Units/L (13-39); BUN/Creatinine Ratio 23 (6-26); Bilirubin,Direct 0.1 mg/dL (0.0-0.2); Bilirubin,Indirect 0.5 mg/dL (0.0-1.2); Bilirubin,Total 0.6 mg/dL (0.3-1.0); Blood Urea Nitrogen 15 mg/dL (6-20); Calcium 9.9 mg/dL (8.6-10.3); Carbon Dioxide 32 mEq/L (23-29); Chloride 98 mEq/L (98-107); Ethanol < 10 mg/dL (Less than 10); Globulin 2.9 g/dL (2.4-3.5); Glucose 111 mg/dL (70-105); Lactate Dehydrogenase 111 Units/L (140-271); Osmolality,Calculated 290 (280-300); Potassium 3.2 mEq/L (3.5-5.1); Salicylate < 2.5 mg/dL (15.0-30.0); Sodium 139 mEq/L (136-145); Total Protein 7.4 g/dL (6.4-8.9); eGFR For Non-African Americans > 60 (> 60)
[2018-07-19 13:09] LABS: Amphetamine Screen,Urine Negative ng/mL (Cutoff=1000); Barbiturate Screen,Urine Negative ng/mL (Cutoff=200); Benzodiazepines Screen,Urine Negative ng/mL (Cutoff=200); Cannabinoid Screen,Urine Negative ng/mL (Cutoff = 50); Cocaine Screen,Urine Negative ng/mL (Cutoff= 300); Opiate Screen,Urine Negative ng/mL (Cutoff=300); Phencyclidine Screen,Urine Negative ng/mL (Cutoff=25); RBC,Urine 0-3 per hpf (0-3); Squamous Epithelial Cell,Urine Moderate per lpf (None-Few); WBC,Urine 0-3 per hpf (0-3)
[2018-07-19 13:09] LABS: Phosphorous 2.9 mg/dL (2.7-4.5)
[2018-07-19 13:10] LABS: Bacteria,Urine Moderate per hpf (None-Few); Trichomonas,Urine Present (None Seen)
[2018-07-19 13:12] LABS: Troponin I 0.04 ng/mL (< 0.04)
[2018-07-19] MEDS ORDERED: Aspirin 81 MG TAB.CHEW PO STA (13:33)
[2018-07-19] MEDS ORDERED: MetroNIDAZOLE 500 MG/100 ML 500 MG/100 ML BAG IVPB ONE (15:11)
--- NOTE | 2018-07-19 16:14 | Electrocardiograph Report ---
[facility] Test Date: 2018-07-19 Pat Name: Carolin Santana Department: EXAM7 Room: Gender: F Application Architect Manager: : [id number] Requested By: Daquan Del Real Order Number: [id number] Reading MD: Eddie Cardenas Measurements Intervals [place] Rate: 94 P: 55 CT: 149 QRS: -47 QRSD: 94 T: 18 QT: 380 QTc: 476 Interpretive Statements Sinus rhythm Left anterior fascicular block Abnormal R-wave progression, late transition Borderline T wave abnormalities Electronically Signed On 07-19-2018 16:12:23 EDT by Eddie Cardenas
[2018-07-19] MEDS ORDERED: Naloxone 0.4 MG/ML INJ IVP PRN (16:24)
[2018-07-19] MEDS ORDERED: hydrOXYzine pamoate 25 MG CAPSULE PO PRN (16:30)
[2018-07-19 17:56] LABS: Chlamydia Trachomatis DNA Ur NOT DETECTED (Not Detect)
--- NOTE | 2018-07-19 19:35 | Internal Med History&Physical ---
Date of Encounter: 07/19/18 Time of Encounter: 11:00 Internal Medicine - H&P: HPI Chief complaint: "Not acting right" Admitted From: Home Plans for Post Hospital Care: Transfer Psych Facility History of present illness: Patient is a 57-year-old female with past medical history significant for catatonia, mood disorder, hypertension, hyperlipidemia, hypothyroid and COPD who presents to the ER due to not acting right. Patient not able to give any history due to catatonia and not at the bedside. Per ER staff, patient is managed for catatonia and mood disorder at the [facility]. Apparently patient needs psychiatric medications adjusted when she experiences this catatonic state. In the ER, labs unremarkable other than slightly elevated troponin at 0.04. She was also found to have Trichomonas on urine culture. Head CT showed no acute findings and chest x-ray negative as well. Psychiatry was consulted from the ER and patient will be admitted to the medical service for medical clearance due to elevated troponin. Past Med Surg Social Fam HX - Past Medical History Medical history: asthma Psychiatric history: anxiety, bipolar, depression - Past Surgical History Surgical History: cholecystectomy, hysterectomy Additional surgical history: BCC right medial cheek - Social History Smoking Status: 2nd Hand Smoke Exposure Smokeless Tobacco Status: No Alcohol use: none Drug use: none - Family History Mother Living Status: Hx Family Endocrine Disorder: Yes ("kidney disease") Internal Medicine - H&P: Meds Levothyroxine [Synthroid] 88 mcg PO QAM 06/16/16 [History] Loratadine [Claritin] 10 mg PO DAILY 06/16/16 [History] Montelukast [Singulair] 10 mg PO QPM 06/16/16 [History] Multivitamin [Multi-Day Vitamins] 1 tab PO DAILY 06/16/16 [History] Acetaminophen [Tylenol] 1,000 mg PO TID 04/13/17 [History] Albuterol Neb [Proventil Neb] 2.5 mg IH TID 04/13/17 [History] Albuterol Sulfate [Albuterol Inhaler] 2 puff IH Q4HR PRN 04/13/17 [History] Budesonide/Formoterol 160/4.5 [Symbicort 160/4.5] 2 puff IH BIDR 04/13/17 [History] Cyclosporine [Restasis] 1 drop BOTH EYES BID 04/13/17 [History] Benztropine Mesylate 1 mg PO BID 07/19/18 [History] Buspirone HCl [Buspar] 5 mg PO BID 07/19/18 [History] Estrogens, Conjugated [Premarin] 0.3 mg PO DAILY 07/19/18 [History] Pantoprazole Sodium [Protonix] 40 mg PO DAILY 07/19/18 [History] hydrOXYzine HCl [Hydroxyzine HCl] 25 mg PO TID PRN 07/19/18 [History] risperiDONE [RisperDAL] 3 mg PO BID 07/19/18 [History] Allergy/AdvReac Type Severity Reaction Status Date / Time Penicillins Allergy Anaphylaxis Verified 07/03/18 15:12 aspirin AdvReac Gastrointestinal Verified 07/03/18 15:12 Upset caffeine AdvReac Itching Verified 07/03/18 15:12 haloperidol AdvReac Seizure Verified 07/03/18 15:12 ROS unobtainable: due to mental status All Systems PM: A 10-system review of systems was performed and is negative for pertinent findings except as documented above in the HPI. - Constitutional Vitals: Temp Pulse Resp BP Pulse Ox 98.3 F 90 18 114/82 100 07/19/18 11:15 07/19/18 15:39 07/19/18 15:39 07/19/18 15:39 07/19/18 15:39 General appearance: Present: no acute distress. Absent: answers questions appropriately Exam: As above - Expanded Psychiatric Exam Focused psych exam: Present: catatonic Internal Med - H&P Results - Labs CBC & Chem 7: 07/19/18 12:40 07/19/18 12:40 Labs: Short CBC 07/19/18 Range/Units 12:40 WBC 8.6 (4.3-11.1) K/mcL Hgb 15.4 (11.5-15.4) g/dL Hct 45.0 H (35.3-44.9) % Plt Count 237 (140-400) K/mcL Neutrophils # 6.0 (1.6-8.9) K/mcL BMP 07/19/18 12:40 Sodium 139 Potassium 3.2 L Chloride 98 Carbon Dioxide 32 H BUN 15 Creatinine 0.64 Glucose 111 H Calcium 9.9 Cardiac Enzymes 07/19/18 Range/Units 12:40 Troponin I 0.04 H* (< 0.04) ng/mL Liver Function 07/19/18 Range/Units 12:40 Total Bilirubin 0.6 (0.3-1.0) mg/dL Direct Bilirubin 0.1 (0.0-0.2) mg/dL AST 14 (13-39) Units/L ALT 13 (7-52) Units/L Alkaline Phosphatase 52 (34-104) Units/L Albumin 4.5 (3.5-5.7) g/dL Urine 07/19/18 Range/Units 12:33 Urine Color Yellow (Yellow) Urine Clarity Clear (Clear) Urine pH 6.0 (5.0-8.0) pH Units Ur Specific [place] >= 1.030 H (1.010-1.025) Urine Protein 100 H (Neg-Trace) mg/dL Urine Glucose (UA) 100 H (Normal) mg/dL - Impressions ITS Impressions Head CT 07/19/18 11:51 IMPRESSION: No acute intracranial abnormality. D/ / Andre Rey MD / Andre Rey MD Interpreting Provider: Andre Rey MD Abdomen/Pelvis CT 07/19/18 12:01 IMPRESSION: No acute intra-abdominal or pelvic finding. Tiny 1 mm nonobstructing stone midportion right kidney is of doubtful clinical significance. Minimal scarring, minimal atelectasis, or minimal dependent edema suggested within the right lung base. D/ / Maynor Haley MD / Maynor Haley MD Interpreting Provider: Maynor Haley MD Chest X-Ray 07/19/18 12:01 IMPRESSION: No evidence for acute cardiopulmonary process. D/ / Rodriguez Hong MD / Rodriguez Hong MD Interpreting Provider: Rodriguez Hong MD - Assessment and plan (1) Catatonia Current Visit: Yes Status: Acute Assessment and plan: Per ER staff, patient is managed for catatonia and mood disorder at the [facility]. Apparently patient needs psychiatric medications adjusted when she experiences this catatonic state. Psychiatry consulted and appreciate recommendations (2) Elevated troponin Current Visit: Yes Status: Acute Assessment and plan: Troponin slightly elevated at 0.04 found any EKG changes. Will trend serial troponins (3) Trichomonas vaginitis Current Visit: Yes Status: Acute Assessment and plan: Will continue Flagyl started in the ER (4) Hypothyroid Current Visit: Yes Status: Acute Assessment and plan: Continue home dose of levothyroxine Qualifiers: Hypothyroidism type: unspecified Qualified Code(s): E03.9 - Hypothyroidism, unspecified (5) COPD (chronic obstructive pulmonary disease) Current Visit: Yes Status: Acute Assessment and plan: Stable; continue Symbicort Qualifiers: Emphysema type: unspecified Qualified Code(s): J43.9 - Emphysema, unspecified (6) DVT prophylaxis Current Visit: No Status: Acute Assessment and plan: Subcutaneous heparin - Time Spent With Patient Total time spent is greater than 50% in coordination of care (as documented) at patient's floor/unit and/or counseling patient:
[2018-07-19] MEDS: Budesonide/Formoterol 160/4.5 1 PUFF INH IH SCH (20:41)
[2018-07-19] MEDS: Albuterol 2.5 MG/3 ML NEBULIZER IH SCH (20:41)
[2018-07-19] MEDS: MetroNIDAZOLE 500 MG/100 ML 500 MG/100 ML BAG IVPB SCH (23:57)
[2018-07-19] MEDS: (Cyclosporine [Restasis] 1 DROP) OP SCH (23:58)
[2018-07-19] MEDS: *HR* Heparin 5,000 UNIT/ML VIAL SQ SCH (23:59)
[2018-07-20] MEDS: RisperiDAL 3 MG TABLET PO SCH ×3 (01:34→22:06)
[2018-07-20 05:14] LABS: Basophils % 0.2 %; Eosinophils # 0.1 K/mcL (0.0-0.6); Eosinophils % 0.5 %; Hematocrit 42.4 % (35.3-44.9); Hemoglobin 14.5 g/dL (11.5-15.4); Immature Granulocytes % 0.2 % (0-4); Lymphocytes # 2.6 K/mcL (0.6-4.6); Mean Corpuscular HGB Conc 34.2 g/dL (31.6-35.5); Mean Corpuscular Hemoglobin 31.9 pg (28.0-33.3); Mean Corpuscular Volume 93.2 fL (83.0-100.0); Mean Platelet Volume 11.2 fL (9.4-12.4); Monocytes # 0.9 K/mcL (0.0-1.3); Monocytes % 9.4 %; Neutrophils # 5.9 K/mcL (1.6-8.9); Platelet Count 221 K/mcL (140-400); Red Blood Count 4.55 M/mcL (3.82-4.97); Red Cell Distribution Width 12.4 % (11.5-14.5); Segmented Neutrophils % 62.7 %
[2018-07-20 05:33] LABS: BUN/Creatinine Ratio 26 (6-26); Blood Urea Nitrogen 17 mg/dL (6-20); Calcium 9.7 mg/dL (8.6-10.3); Carbon Dioxide 31 mEq/L (23-29); Chloride 98 mEq/L (98-107); Glucose 89 mg/dL (70-105); Osmolality,Calculated 291 (280-300); Potassium 2.9 mEq/L (3.5-5.1); Sodium 140 mEq/L (136-145); eGFR For Non-African Americans > 60 (> 60)
[2018-07-20] MEDS: *HR* Heparin 5,000 UNIT/ML VIAL SQ SCH ×3 (07:27→22:07)
[2018-07-20] MEDS: Albuterol 2.5 MG/3 ML NEBULIZER IH SCH ×3 (08:13→20:28)
[2018-07-20] MEDS: Budesonide/Formoterol 160/4.5 1 PUFF INH IH SCH ×2 (08:13→20:28)
[2018-07-20] MEDS: (Cyclosporine [Restasis] 1 DROP) OP SCH ×2 (08:42→22:06)
[2018-07-20] MEDS: Loratadine 10 MG TABLET PO SCH (08:42)
[2018-07-20] MEDS: Multivit/Ca/Min/Fe/FA 1 TAB TABLET PO SCH (08:42)
[2018-07-20] MEDS: MetroNIDAZOLE 500 MG/100 ML 500 MG/100 ML BAG IVPB SCH ×2 (08:43→22:05)
--- NOTE | 2018-07-20 09:15 | Internal Med Progress Note ---
Hospitalist Progress Note - Encounter Date of Encounter: 07/20/18 Time of Encounter: 11:00 - Subjective Interval History: Patient still in catatonic state this morning Psychiatry consulted and appreciate recommendations - Exam Vitals: Temp Pulse Resp BP Pulse Ox 98.1 F 90 16 102/71 95 07/20/18 07:38 07/20/18 07:38 07/20/18 07:38 07/20/18 07:38 07/20/18 07:38 Exam: Gen.: Nonacute distress, alert and oriented 3 ENT: Mucosal membranes moist Respiratory: Lungs are clear to auscultation bilaterally without any wheezing rhonchi or rales Cardiovascular: Normal S1 and S2 regular rate rhythm no murmurs rubs or gallops Abdomen: Soft, nontender and nondistended with positive bowel sounds Extremities: No lower extremity edema Skin: Normal color Psych: Catatonic state - Assessment and Plan (1) Catatonia Current Visit: Yes Status: Acute Assessment and Plan: Patient with outpatient management at [facility] Apparently per report, patient usually has her psychiatric medications adjusted when she experiences her catatonic state Psychiatry consulted and appreciate recommendations for management (2) Elevated troponin Current Visit: Yes Status: Acute Assessment and Plan: Troponins troponins have been flat at 0.04 since admission Echocardiogram pending further evaluation (3) Trichomonas vaginitis Current Visit: Yes Status: Acute Assessment and Plan: Will continue Flagyl 100 mg IV twice a day (4) Hypothyroid Current Visit: Yes Status: Acute Assessment and Plan: Continue home dose of levothyroxine (5) COPD (chronic obstructive pulmonary disease) Current Visit: Yes Status: Acute Assessment and Plan: Stable; continue Symbicort (6) DVT prophylaxis Current Visit: No Status: Acute Assessment and Plan: Subcutaneous heparin - Time Spent with Patient Total time spent is greater than 50% in coordination of care (as documented) at patient's floor/unit and/or counseling patient: Internal Medicine: Result - Labs CBC & Chem 7: 07/20/18 04:02 07/20/18 04:02 Labs: Short CBC 07/19/18 07/20/18 Range/Units 12:40 04:02 WBC 8.6 9.5 (4.3-11.1) K/mcL Hgb 15.4 14.5 (11.5-15.4) g/dL Hct 45.0 H 42.4 (35.3-44.9) % Plt Count 237 221 (140-400) K/mcL Neutrophils # 6.0 5.9 (1.6-8.9) K/mcL BMP 07/19/18 07/20/18 12:40 04:02 Sodium 139 140 Potassium 3.2 L 2.9 L Chloride 98 98 Carbon Dioxide 32 H 31 H BUN 15 17 Creatinine 0.64 0.66 Glucose 111 H 89 Calcium 9.9 9.7 Cardiac Enzymes 07/19/18 07/19/18 07/19/18 Range/Units 12:40 16:53 22:07 Troponin I 0.04 H* 0.04 H* 0.04 H* (< 0.04) ng/mL 07/20/18 Range/Units 04:02 Troponin I 0.04 H* (< 0.04) ng/mL Liver Function 07/19/18 Range/Units 12:40 Total Bilirubin 0.6 (0.3-1.0) mg/dL Direct Bilirubin 0.1 (0.0-0.2) mg/dL AST 14 (13-39) Units/L ALT 13 (7-52) Units/L Alkaline Phosphatase 52 (34-104) Units/L Albumin 4.5 (3.5-5.7) g/dL Urine 07/19/18 Range/Units 12:33 Urine Color Yellow (Yellow) Urine Clarity Clear (Clear) Urine pH 6.0 (5.0-8.0) pH Units Ur Specific [place] >= 1.030 H (1.010-1.025) Urine Protein 100 H (Neg-Trace) mg/dL Urine Glucose (UA) 100 H (Normal) mg/dL - Impressions Impressions Head CT 07/19/18 11:51 IMPRESSION: No acute intracranial abnormality. D/ / Andre Rey MD / Andre Rey MD Interpreting Provider: Andre Rey MD Abdomen/Pelvis CT 07/19/18 12:01 IMPRESSION: No acute intra-abdominal or pelvic finding. Tiny 1 mm nonobstructing stone midportion right kidney is of doubtful clinical significance. Minimal scarring, minimal atelectasis, or minimal dependent edema suggested within the right lung base. D/ / Maynor Haley MD / Maynor Haley MD Interpreting Provider: Maynor Haley MD Chest X-Ray 07/19/18 12:01 IMPRESSION: No evidence for acute cardiopulmonary process. D/ / Rodriguez Hong MD / Rodriguez Hong MD Interpreting Provider: Rodriguez Hong MD Consult Discharge Plan - Plan Referrals: NONE,PCP [Primary Care Provider] - (4) Hypothyroid Qualifiers: Hypothyroidism type: unspecified Qualified Code(s): E03.9 - Hypothyroidism, unspecified (5) COPD (chronic obstructive pulmonary disease) Qualifiers: Emphysema type: unspecified Qualified Code(s): J43.9 - Emphysema, unspecified
--- NOTE | 2018-07-20 11:20 | Consult Note ---
Date of Encounter: 07/20/18 Time of Encounter: 11:16 Assessment & Recommendation (1) Bipolar 1 disorder Current visit: Yes Status: Acute Assessment & Recommendation: Client appears to be catatonic. Would recommend a benzo like Ativan to see how she responds. Client is unable to provide any history so unclear what her med tolerance is. Can start with Ativan 0.5mg TID but she may need higher doses depending on her response level. Will follow along. History of Present Illness Requesting Physician: Danish Villeda Reason for consult: Other History of present illness: Ms. Santana is a 57 year old female with Bipolar Disorder who was admitted with an altered mental status. Troponins elevated and being worked up medically. Client is currently unable to give any history. No family at bedside. Records indicate she has a known history of Bipolar Disorder and that she currently lives at home with her . Taking Risperdal. Looks to have catatonia. Mostly mute. Able to provide minimal responses to some questions but thoughts are blocked and responses delayed. Flat affect. Has a partially eaten sandwich in front of her so able to do some things but movements are very slow. Likely needs a benzo to help with catatonia. Client did shake her head "no" when asked about SI. CC: Danish Villeda Past Med Surg Social Fam HX - Past Medical History Medical history: asthma - Past Psychiatric History Psychiatric history: Reports: bipolar Family psychiatric history: Unknown Family History of Suicide: Unknown - Past Surgical History Surgical History: cholecystectomy, hysterectomy - Social History Smoking Status: 2nd Hand Smoke Exposure Smokeless Tobacco Status: No Alcohol use: none Drug use: none - Family History Mother Name: angella Living Status: Hx Family Endocrine Disorder: Yes ("kidney disease") Medications & Allergies Levothyroxine [Synthroid] 88 mcg PO QAM 06/16/16 [History] Loratadine [Claritin] 10 mg PO DAILY 06/16/16 [History] Montelukast [Singulair] 10 mg PO QPM 06/16/16 [History] Multivitamin [Multi-Day Vitamins] 1 tab PO DAILY 06/16/16 [History] Acetaminophen [Tylenol] 1,000 mg PO TID 04/13/17 [History] Albuterol Neb [Proventil Neb] 2.5 mg IH TID 04/13/17 [History] Albuterol Sulfate [Albuterol Inhaler] 2 puff IH Q4HR PRN 04/13/17 [History] Budesonide/Formoterol 160/4.5 [Symbicort 160/4.5] 2 puff IH BIDR 04/13/17 [History] Cyclosporine [Restasis] 1 drop BOTH EYES BID 04/13/17 [History] Benztropine Mesylate 1 mg PO BID 07/19/18 [History] Buspirone HCl [Buspar] 5 mg PO BID 07/19/18 [History] Estrogens, Conjugated [Premarin] 0.3 mg PO DAILY 07/19/18 [History] Pantoprazole Sodium [Protonix] 40 mg PO DAILY 07/19/18 [History] hydrOXYzine HCl [Hydroxyzine HCl] 25 mg PO TID PRN 07/19/18 [History] risperiDONE [RisperDAL] 3 mg PO BID 07/19/18 [History] Allergy/AdvReac Type Severity Reaction Status Date / Time Penicillins Allergy Anaphylaxis Verified 07/03/18 15:12 aspirin AdvReac Gastrointestinal Verified 07/03/18 15:12 Upset caffeine AdvReac Itching Verified 07/03/18 15:12 haloperidol AdvReac Seizure Verified 07/03/18 15:12 Review of Systems Constitutional: Denies: fever, chills, weakness, weight change Eyes: Denies: eye pain, vision change Ears, Nose, Throat: Denies: ear pain, throat pain, dental pain, hearing loss, congestion Cardiovascular: Denies: chest pain, palpitations, dyspnea on exertion Respiratory: Denies: cough, dyspnea, wheezes Gastrointestinal: Denies: abdominal pain, nausea, vomiting, diarrhea, constipation Genitourinary female: Denies: urgency, dysuria, frequency, abnormal menses, dyspareunia Musculoskeletal: Denies: joint swelling, joint pain Integumentary: Denies: rash, lesions, pruritus Neurological: Denies: headache, weakness, numbness, memory loss Endocrine: Denies: fatigue, heat or cold intolerance Hematologic/Lymphatic: Denies: easy bruising, lymphadenopathy Allergic/Immunologic: Denies: urticaria, itchy eyes Psychiatry Exam - Constitutional Vitals: Temp Pulse Resp BP Pulse Ox 98.0 F 100 16 118/84 100 07/20/18 10:52 07/20/18 10:52 07/20/18 10:52 07/20/18 10:52 07/20/18 10:52 General appearance: age & developmentally appropriate - Musculoskeletal Gait: other Station: relaxed Strength & Tone: normal for patient - Psychiatric Patient Orientation: Yes Other Level of alertness: Other Behavior: other Psychomotor activity: Slowed Eye Contact: Prolonged Contact Mood Description: Other Affect description: flat Speech Volume: Soft/Quiet Speech pattern: slowed Language & Vocabulary: consistent with education Thought Process: Thought Blocking Thought Content: No Suicidal ideation, No Homicidal ideation, No Overt delusions Perceptual Disturbances: No Auditory hallucinations, No Visual hallucinations Attention Span Ability: Capable of Focused Attention Memory Description: Recent Impaired Patient Reliability: Not Reliable Historian Fund of knowledge: Yes abstraction ability Intelligence Estimate: Average Judgment: Limited Insight: Minimal Results - Drug Levels and Toxicology Drug Levels and Toxicology: Drug Levels and Toxicity 07/19/18 07/19/18 12:33 12:40 Urine Opiates Screen Negative Acetaminophen < 10 L Ur Barbiturates Screen Negative Ur Phencyclidine Scrn Negative Ur Amphetamines Screen Negative U Benzodiazepines Scrn Negative Urine Cocaine Screen Negative U Marijuana (THC) Screen Negative Ethyl Alcohol < 10 - Labs Labs: Laboratory Last Values WBC 9.5 K/mcL (4.3-11.1) 07/20/18 04:02 RBC 4.55 M/mcL (3.82-4.97) 07/20/18 04:02 Hgb 14.5 g/dL (11.5-15.4) 07/20/18 04:02 Hct 42.4 % (35.3-44.9) 07/20/18 04:02 MCV 93.2 fL (83.0-100.0) 07/20/18 04:02 MCH 31.9 pg (28.0-33.3) 07/20/18 04:02 MCHC 34.2 g/dL (31.6-35.5) 07/20/18 04:02 RDW 12.4 % (11.5-14.5) 07/20/18 04:02 Plt Count 221 K/mcL (140-400) 07/20/18 04:02 MPV 11.2 fL (9.4-12.4) 07/20/18 04:02 Immature Gran % 0.2 % (0-4) 07/20/18 04:02 Seg Neutrophils % 62.7 % 07/20/18 04:02 Lymphocytes % 27.0 % 07/20/18 04:02 Monocytes % 9.4 % 07/20/18 04:02 Eosinophils % 0.5 % 07/20/18 04:02 Basophils % 0.2 % 07/20/18 04:02 Neutrophils # 5.9 K/mcL (1.6-8.9) 07/20/18 04:02 Lymphocytes # 2.6 K/mcL (0.6-4.6) 07/20/18 04:02 Monocytes # 0.9 K/mcL (0.0-1.3) 07/20/18 04:02 Eosinophils # 0.1 K/mcL (0.0-0.6) 07/20/18 04:02 Basophils # 0.0 K/mcL (0.0-0.2) 07/20/18 04:02 Sodium 140 mEq/L (136-145) 07/20/18 04:02 Potassium 2.9 mEq/L (3.5-5.1) L 07/20/18 04:02 Chloride 98 mEq/L (98-107) 07/20/18 04:02 Carbon Dioxide 31 mEq/L (23-29) H 07/20/18 04:02 BUN 17 mg/dL (6-20) 07/20/18 04:02 Creatinine 0.66 mg/dL (0.60-1.20) 07/20/18 04:02 Est GFR ( Amer) > 60 (> 60) 07/20/18 04:02 Est GFR (Non-Af Amer) > 60 (> 60) 07/20/18 04:02 BUN/Creatinine Ratio 26 (6-26) 07/20/18 04:02 Glucose 89 mg/dL (70-105) 07/20/18 04:02 POC Glucose 115 mg/dL (70-99) H 07/19/18 11:34 Calculated Osmolality 291 (280-300) 07/20/18 04:02 Calcium 9.7 mg/dL (8.6-10.3) 07/20/18 04:02 Venous Ioniz Calcium 1.07 mmol/L (1.15-1.35) L 07/19/18 12:49 Phosphorus 2.9 mg/dL (2.7-4.5) 07/19/18 12:40 Magnesium 2.0 mg/dL (1.6-2.6) 07/19/18 12:40 Total Bilirubin 0.6 mg/dL (0.3-1.0) 07/19/18 12:40 Direct Bilirubin 0.1 mg/dL (0.0-0.2) 07/19/18 12:40 Indirect Bilirubin 0.5 mg/dL (0.0-1.2) 07/19/18 12:40 AST 14 Units/L (13-39) 07/19/18 12:40 ALT 13 Units/L (7-52) 07/19/18 12:40 Alkaline Phosphatase 52 Units/L (34-104) 07/19/18 12:40 Lactate Dehydrogenase 111 Units/L (140-271) L 07/19/18 12:40 Troponin I 0.04 ng/mL (< 0.04) H* 07/20/18 04:02 Serum Total Protein 7.4 g/dL (6.4-8.9) 07/19/18 12:40 Albumin 4.5 g/dL (3.5-5.7) 07/19/18 12:40 Globulin 2.9 g/dL (2.4-3.5) 07/19/18 12:40 Albumin/Globulin Ratio 1.6 (1.1-2.2) 07/19/18 12:40 Urine Color Yellow (Yellow) 07/19/18 12:33 Urine Clarity Clear (Clear) 07/19/18 12:33 Urine pH 6.0 pH Units (5.0-8.0) 07/19/18 12:33 Ur Specific [place] >= 1.030 (1.010-1.025) H 07/19/18 12:33 Urine Protein 100 mg/dL (Neg-Trace) H 07/19/18 12:33 Urine Glucose (UA) 100 mg/dL (Normal) H 07/19/18 12:33 Urine Ketones Trace mg/dL (Negative) H 07/19/18 12:33 Urine Blood Negative (Negative) 07/19/18 12:33 Urine Nitrite Negative (Negative) 07/19/18 12:33 Urine Bilirubin Small (Negative) H 07/19/18 12:33 Urine Urobilinogen Normal mg/dL (Normal) 07/19/18 12:33 Ur Leukocyte Esterase Small (Negative) H 07/19/18 12:33 Urine Microscopic RBC 0-3 per hpf (0-3) 07/19/18 12:33 Urine Microscopic WBC 0-3 per hpf (0-3) 07/19/18 12:33 Ur Squamous Epith Cells Moderate per lpf (None-Few) H 07/19/18 12:33 Urine Bacteria Moderate per hpf (None-Few) H 07/19/18 12:33 Urine Trichomonas Present (None Seen) A 07/19/18 12:33 Ur Culture Indicated? YES (NO) A 07/19/18 12:33 Urine Test Negative (Negative) 07/19/18 12:33 Salicylates < 2.5 mg/dL (15.0-30.0) L 07/19/18 12:40 Urine Opiates Screen Negative ng/mL (Tbrscc=145) 07/19/18 12:33 Acetaminophen < 10 mcg/mL (10-20) L 07/19/18 12:40 Ur Barbiturates Screen Negative ng/mL (Wpxqip=914) 07/19/18 12:33 Ur Phencyclidine Scrn Negative ng/mL (Cutoff=25) 07/19/18 12:33 Ur Amphetamines Screen Negative ng/mL (Vudeas=3596) 07/19/18 12:33 U Benzodiazepines Scrn Negative ng/mL (Kmgzgx=659) 07/19/18 12:33 Urine Cocaine Screen Negative ng/mL (Cutoff= 300) 07/19/18 12:33 U Marijuana (THC) Screen Negative ng/mL (Cutoff = 50) 07/19/18 12:33 Ur Drug Screen Interp See Below 07/19/18 12:33 Ethyl Alcohol < 10 mg/dL (Less than 10) 07/19/18 12:40 Ur C. trach DNA (PCR) NOT DETECTED (Not Detect) 07/19/18 16:03 U N.gonorrhoeae DNA PCR NOT DETECTED (Not Detect) 07/19/18 16:03 - Impressions Impressions Head CT 07/19/18 11:51 IMPRESSION: No acute intracranial abnormality. D/ / Andre Rey MD / Andre Rey MD Interpreting Provider: Andre Rey MD Abdomen/Pelvis CT 07/19/18 12:01 IMPRESSION: No acute intra-abdominal or pelvic finding. Tiny 1 mm nonobstructing stone midportion right kidney is of doubtful clinical significance. Minimal scarring, minimal atelectasis, or minimal dependent edema suggested within the right lung base. D/ / Maynor Haley MD / Maynor Haley MD Interpreting Provider: Maynor Haley MD Chest X-Ray 07/19/18 12:01 IMPRESSION: No evidence for acute cardiopulmonary process. D/ / Rodriguez Hong MD / Rodriguez Hong MD Interpreting Provider: Rodriguez Hong MD Consult Discharge Plan - Plan Referrals: NONE,PCP [Primary Care Provider] -
[2018-07-21] MEDS: *HR* Heparin 5,000 UNIT/ML VIAL SQ SCH ×3 (06:28→21:31)
[2018-07-21] MEDS: Multivit/Ca/Min/Fe/FA 1 TAB TABLET PO SCH (10:20)
[2018-07-21] MEDS: Loratadine 10 MG TABLET PO SCH (10:20)
[2018-07-21] MEDS: MetroNIDAZOLE 500 MG/100 ML 500 MG/100 ML BAG IVPB SCH ×2 (10:21→20:25)
[2018-07-21] MEDS: (Cyclosporine [Restasis] 1 DROP) OP SCH ×2 (10:21→20:26)
[2018-07-21] MEDS: RisperiDAL 3 MG TABLET PO SCH ×2 (10:24→20:26)
[2018-07-21] MEDS: *HR* LORazepam 0.5 MG TABLET PO SCH ×3 (10:28→20:26)
[2018-07-21] MEDS: Budesonide/Formoterol 160/4.5 1 PUFF INH IH SCH ×2 (10:43→21:40)
[2018-07-21] MEDS: Albuterol 2.5 MG/3 ML NEBULIZER IH SCH ×3 (10:43→21:40)
--- NOTE | 2018-07-21 10:54 | Internal Med Progress Note ---
Hospitalist Progress Note - Encounter Date of Encounter: 07/21/18 Time of Encounter: 11:00 - Subjective Interval History: Patient this morning conversing and answering questions. Ativan recommended by psychiatrist working; continue to monitor - Exam Vitals: Temp Pulse Resp BP Pulse Ox 97.8 F 91 19 96/67 95 07/21/18 07:03 07/21/18 07:03 07/21/18 07:03 07/21/18 07:03 07/21/18 07:03 Exam: Gen.: Nonacute distress, alert and oriented 3 ENT: Mucosal membranes moist Respiratory: Lungs are clear to auscultation bilaterally without any wheezing rhonchi or rales Cardiovascular: Normal S1 and S2 regular rate rhythm no murmurs rubs or gallops Abdomen: Soft, nontender and nondistended with positive bowel sounds Extremities: No lower extremity edema Skin: Normal color Psych: Catatonic state - Assessment and Plan (1) Catatonia Current Visit: Yes Status: Acute Assessment and Plan: Patient with outpatient management at [facility] Apparently per report, patient usually has her psychiatric medications adjusted when she experiences her catatonic state Psychiatry consulted with recommendations for Ativan 0.5mg TID (2) Hypokalemia Current Visit: Yes Status: Acute Assessment and Plan: Potassium supplementation as needed (3) Elevated troponin Current Visit: Yes Status: Acute Assessment and Plan: Troponins troponins have been flat at 0.04 since admission Echocardiogram pending further evaluation (4) Trichomonas vaginitis Current Visit: Yes Status: Acute Assessment and Plan: Will continue Flagyl 100 mg IV twice a day (5) Hypothyroid Current Visit: Yes Status: Acute Assessment and Plan: Continue home dose of levothyroxine (6) COPD (chronic obstructive pulmonary disease) Current Visit: Yes Status: Acute Assessment and Plan: Stable; continue Symbicort (7) DVT prophylaxis Current Visit: No Status: Acute Assessment and Plan: Subcutaneous heparin - Time Spent with Patient Total time spent is greater than 50% in coordination of care (as documented) at patient's floor/unit and/or counseling patient: Internal Medicine: Result - Labs CBC & Chem 7: 07/21/18 11:57 07/21/18 11:57 Consult Discharge Plan - Plan Referrals: NONE,PCP [Primary Care Provider] - (5) Hypothyroid Qualifiers: Hypothyroidism type: unspecified Qualified Code(s): E03.9 - Hypothyroidism, unspecified (6) COPD (chronic obstructive pulmonary disease) Qualifiers: Emphysema type: unspecified Qualified Code(s): J43.9 - Emphysema, unspecified
--- NOTE | 2018-07-21 11:23 | Consult Note ---
Date of Encounter: 07/21/18 Time of Encounter: 11:20 Assessment & Recommendation (1) Bipolar 1 disorder Current visit: Yes Status: Acute Assessment & Recommendation: Continues to be catatonic. If no improvement after a couple of doses of Ativan would increase to 1mg at a time. History of Present Illness Requesting Physician: Danish Villeda Reason for consult: Catatonia History of present illness: Ms. Santana is a 57 year old female who was admitted medically due to increased troponins. Currently in a catatonic state. Ativan 0.5mg started but no noted improvement. Known mental health history. 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 Only stared. Yesterday she said a few words but nothing today. No family present to provide collateral information. Would continue Ativan. If no improvement after a couple of doses would increase to 1mg at a time. CC: Danish Villeda Past Med Surg Social Fam HX - Past Medical History Medical history: asthma - Past Psychiatric History Psychiatric history: Reports: bipolar Family psychiatric history: Unknown Family History of Suicide: Unknown - Past Surgical History Surgical History: cholecystectomy, hysterectomy - Social History Smoking Status: 2nd Hand Smoke Exposure Smokeless Tobacco Status: No Alcohol use: none Drug use: none - Family History Mother Name: angella Living Status: Hx Family Endocrine Disorder: Yes ("kidney disease") Medications & Allergies Levothyroxine [Synthroid] 88 mcg PO QAM 06/16/16 [History] Loratadine [Claritin] 10 mg PO DAILY 06/16/16 [History] Montelukast [Singulair] 10 mg PO QPM 06/16/16 [History] Multivitamin [Multi-Day Vitamins] 1 tab PO DAILY 06/16/16 [History] Acetaminophen [Tylenol] 1,000 mg PO TID 04/13/17 [History] Albuterol Neb [Proventil Neb] 2.5 mg IH TID 04/13/17 [History] Albuterol Sulfate [Albuterol Inhaler] 2 puff IH Q4HR PRN 04/13/17 [History] Budesonide/Formoterol 160/4.5 [Symbicort 160/4.5] 2 puff IH BIDR 04/13/17 [History] Cyclosporine [Restasis] 1 drop BOTH EYES BID 04/13/17 [History] Benztropine Mesylate 1 mg PO BID 07/19/18 [History] Buspirone HCl [Buspar] 5 mg PO BID 07/19/18 [History] Estrogens, Conjugated [Premarin] 0.3 mg PO DAILY 07/19/18 [History] Pantoprazole Sodium [Protonix] 40 mg PO DAILY 07/19/18 [History] hydrOXYzine HCl [Hydroxyzine HCl] 25 mg PO TID PRN 07/19/18 [History] risperiDONE [RisperDAL] 3 mg PO BID 07/19/18 [History] Allergy/AdvReac Type Severity Reaction Status Date / Time Penicillins Allergy Anaphylaxis Verified 07/03/18 15:12 aspirin AdvReac Gastrointestinal Verified 07/03/18 15:12 Upset caffeine AdvReac Itching Verified 07/03/18 15:12 haloperidol AdvReac Seizure Verified 07/03/18 15:12 Review of Systems Constitutional: Denies: fever, chills, weakness, weight change Eyes: Denies: eye pain, vision change Ears, Nose, Throat: Denies: ear pain, throat pain, dental pain, hearing loss, congestion Cardiovascular: Denies: chest pain, palpitations, dyspnea on exertion Respiratory: Denies: cough, dyspnea, wheezes Gastrointestinal: Denies: abdominal pain, nausea, vomiting, diarrhea, constipation Genitourinary female: Denies: urgency, dysuria, frequency, abnormal menses, dyspareunia Musculoskeletal: Denies: joint swelling, joint pain Integumentary: Denies: rash, lesions, pruritus Neurological: Denies: headache, weakness, numbness, memory loss Endocrine: Denies: fatigue, heat or cold intolerance Hematologic/Lymphatic: Denies: easy bruising, lymphadenopathy Allergic/Immunologic: Denies: urticaria, itchy eyes Psychiatry Exam - Constitutional Vitals: Temp Pulse Resp BP Pulse Ox 97.8 F 91 19 96/67 95 07/21/18 07:03 07/21/18 07:03 07/21/18 07:03 07/21/18 07:03 07/21/18 07:03 General appearance: thin - Musculoskeletal Gait: other Station: other Strength & Tone: other - Psychiatric Patient Orientation: Yes Other Level of alertness: Other Behavior: withdrawn Psychomotor activity: Slowed Eye Contact: Prolonged Contact Mood Description: Other Affect description: blunted Speech Volume: No speech Speech pattern: other Language & Vocabulary: other Patient Reliability: Not Reliable Historian Results - Labs Labs: Laboratory Last Values WBC 9.5 K/mcL (4.3-11.1) 07/20/18 04:02 RBC 4.55 M/mcL (3.82-4.97) 07/20/18 04:02 Hgb 14.5 g/dL (11.5-15.4) 07/20/18 04:02 Hct 42.4 % (35.3-44.9) 07/20/18 04:02 MCV 93.2 fL (83.0-100.0) 07/20/18 04:02 MCH 31.9 pg (28.0-33.3) 07/20/18 04:02 MCHC 34.2 g/dL (31.6-35.5) 07/20/18 04:02 RDW 12.4 % (11.5-14.5) 07/20/18 04:02 Plt Count 221 K/mcL (140-400) 07/20/18 04:02 MPV 11.2 fL (9.4-12.4) 07/20/18 04:02 Immature Gran % 0.2 % (0-4) 07/20/18 04:02 Seg Neutrophils % 62.7 % 07/20/18 04:02 Lymphocytes % 27.0 % 07/20/18 04:02 Monocytes % 9.4 % 07/20/18 04:02 Eosinophils % 0.5 % 07/20/18 04:02 Basophils % 0.2 % 07/20/18 04:02 Neutrophils # 5.9 K/mcL (1.6-8.9) 07/20/18 04:02 Lymphocytes # 2.6 K/mcL (0.6-4.6) 07/20/18 04:02 Monocytes # 0.9 K/mcL (0.0-1.3) 07/20/18 04:02 Eosinophils # 0.1 K/mcL (0.0-0.6) 07/20/18 04:02 Basophils # 0.0 K/mcL (0.0-0.2) 07/20/18 04:02 Sodium 140 mEq/L (136-145) 07/20/18 04:02 Potassium 2.9 mEq/L (3.5-5.1) L 07/20/18 04:02 Chloride 98 mEq/L (98-107) 07/20/18 04:02 Carbon Dioxide 31 mEq/L (23-29) H 07/20/18 04:02 BUN 17 mg/dL (6-20) 07/20/18 04:02 Creatinine 0.66 mg/dL (0.60-1.20) 07/20/18 04:02 Est GFR ( Amer) > 60 (> 60) 07/20/18 04:02 Est GFR (Non-Af Amer) > 60 (> 60) 07/20/18 04:02 BUN/Creatinine Ratio 26 (6-26) 07/20/18 04:02 Glucose 89 mg/dL (70-105) 07/20/18 04:02 POC Glucose 108 mg/dL (70-99) H 07/20/18 19:59 Calculated Osmolality 291 (280-300) 07/20/18 04:02 Calcium 9.7 mg/dL (8.6-10.3) 07/20/18 04:02 Venous Ioniz Calcium 1.07 mmol/L (1.15-1.35) L 07/19/18 12:49 Phosphorus 2.9 mg/dL (2.7-4.5) 07/19/18 12:40 Magnesium 2.0 mg/dL (1.6-2.6) 07/19/18 12:40 Total Bilirubin 0.6 mg/dL (0.3-1.0) 07/19/18 12:40 Direct Bilirubin 0.1 mg/dL (0.0-0.2) 07/19/18 12:40 Indirect Bilirubin 0.5 mg/dL (0.0-1.2) 07/19/18 12:40 AST 14 Units/L (13-39) 07/19/18 12:40 ALT 13 Units/L (7-52) 07/19/18 12:40 Alkaline Phosphatase 52 Units/L (34-104) 07/19/18 12:40 Lactate Dehydrogenase 111 Units/L (140-271) L 07/19/18 12:40 Troponin I 0.04 ng/mL (< 0.04) H* 07/20/18 04:02 Serum Total Protein 7.4 g/dL (6.4-8.9) 07/19/18 12:40 Albumin 4.5 g/dL (3.5-5.7) 07/19/18 12:40 Globulin 2.9 g/dL (2.4-3.5) 07/19/18 12: Albumin/Globulin Ratio 1.6 (1.1-2.2) 07/19/18 12:40 Urine Color Yellow (Yellow) 07/19/18 12: Urine Clarity Clear (Clear) 07/19/18 12:33 Urine pH 6.0 pH Units (5.0-8.0) 07/19/18 12:33 Ur Specific [place] >= 1.030 (1.010-1.025) H 07/19/18 12: Urine Protein 100 mg/dL (Neg-Trace) H 07/19/18 12: Urine Glucose (UA) 100 mg/dL (Normal) H 07/19/18 12: Urine Ketones Trace mg/dL (Negative) H 07/19/18 12:33 Urine Blood Negative (Negative) 07/19/18 12:33 Urine Nitrite Negative (Negative) 07/19/18 12:33 Urine Bilirubin Small (Negative) H 07/19/18 12:33 Urine Urobilinogen Normal mg/dL (Normal) 07/19/18 12:33 Ur Leukocyte Esterase Small (Negative) H 07/19/18 12:33 Urine Microscopic RBC 0-3 per hpf (0-3) 07/19/18 12:33 Urine Microscopic WBC 0-3 per hpf (0-3) 07/19/18 12:33 Ur Squamous Epith Cells Moderate per lpf (None-Few) H 07/19/18 12:33 Urine Bacteria Moderate per hpf (None-Few) H 07/19/18 12:33 Urine Trichomonas Present (None Seen) A 07/19/18 12:33 Ur Culture Indicated? YES (NO) A 07/19/18 12:33 Urine Test Negative (Negative) 07/19/18 12:33 Salicylates < 2.5 mg/dL (15.0-30.0) L 07/19/18 12:40 Urine Opiates Screen Negative ng/mL (Dhutlg=517) 07/19/18 12: Acetaminophen < 10 mcg/mL (10-20) L 07/19/18 12:40 Ur Barbiturates Screen Negative ng/mL (Xhdlks=780) 07/19/18 12:33 Ur Phencyclidine Scrn Negative ng/mL (Cutoff=25) 07/19/18 12:33 Ur Amphetamines Screen Negative ng/mL (Oovkkq=8617) 07/19/18 12:33 U Benzodiazepines Scrn Negative ng/mL (Srwgxl=151) 07/19/18 12:33 Urine Cocaine Screen Negative ng/mL (Cutoff= 300) 07/19/18 12:33 U Marijuana (THC) Screen Negative ng/mL (Cutoff = 50) 07/19/18 12:33 Ur Drug Screen Interp See Below 07/19/18 12:33 Ethyl Alcohol < 10 mg/dL (Less than 10) 07/19/18 12:40 Ur C. trach DNA (PCR) NOT DETECTED (Not Detect) 07/19/18 16:03 U N.gonorrhoeae DNA PCR NOT DETECTED (Not Detect) 07/19/18 16:03 Consult Discharge Plan - Plan Referrals: NONE,PCP [Primary Care Provider] -
[2018-07-21 12:15] LABS: Basophils % 0.3 %; Eosinophils % 0.5 %; Hematocrit 41.6 % (35.3-44.9); Hemoglobin 14.1 g/dL (11.5-15.4); Immature Granulocytes % 0.3 % (0-4); Lymphocytes # 1.7 K/mcL (0.6-4.6); Mean Corpuscular HGB Conc 33.9 g/dL (31.6-35.5); Mean Corpuscular Hemoglobin 31.3 pg (28.0-33.3); Mean Corpuscular Volume 92.4 fL (83.0-100.0); Mean Platelet Volume 10.9 fL (9.4-12.4); Monocytes # 0.7 K/mcL (0.0-1.3); Monocytes % 9.6 %; Neutrophils # 5.1 K/mcL (1.6-8.9); Platelet Count 219 K/mcL (140-400); Red Cell Distribution Width 12.2 % (11.5-14.5); Segmented Neutrophils % 67.3 %
[2018-07-21 12:34] LABS: BUN/Creatinine Ratio 21 (6-26); Blood Urea Nitrogen 12 mg/dL (6-20); Calcium 9.3 mg/dL (8.6-10.3); Carbon Dioxide 27 mEq/L (23-29); Chloride 101 mEq/L (98-107); Glucose 124 mg/dL (70-105); Osmolality,Calculated 285 (280-300); Potassium 3.1 mEq/L (3.5-5.1); Sodium 137 mEq/L (136-145); eGFR For Non-African Americans > 60 (> 60)
[2018-07-22] MEDS: *HR* Heparin 5,000 UNIT/ML VIAL SQ SCH ×3 (05:12→21:16)
[2018-07-22] MEDS: Loratadine 10 MG TABLET PO SCH (07:54)
[2018-07-22] MEDS: *HR* LORazepam 0.5 MG TABLET PO SCH ×3 (07:55→21:16)
[2018-07-22] MEDS: Multivit/Ca/Min/Fe/FA 1 TAB TABLET PO SCH (07:55)
[2018-07-22] MEDS: RisperiDAL 3 MG TABLET PO SCH ×2 (07:55→21:16)
[2018-07-22] MEDS: MetroNIDAZOLE 500 MG/100 ML 500 MG/100 ML BAG IVPB SCH ×2 (07:56→21:17)
[2018-07-22] MEDS: (Cyclosporine [Restasis] 1 DROP) OP SCH ×2 (07:56→21:32)
[2018-07-22] MEDS: Budesonide/Formoterol 160/4.5 1 PUFF INH IH SCH ×2 (08:06→20:14)
[2018-07-22] MEDS: Albuterol 2.5 MG/3 ML NEBULIZER IH SCH ×3 (08:06→20:14)
[2018-07-22] MEDS ORDERED: Magnesium Oxide 400 MG TABLET PO ONE (10:30)
[2018-07-22] MEDS ORDERED: 0.9 % Sodium Chloride 500 ML ONE (10:51)
[2018-07-22 17:37] LABS: Bilirubin,Urine Small (Negative); Blood,Urine Negative (Negative); Clarity,Urine Clear (Clear); Color,Urine Red (Yellow); Glucose,Urine (UA) Normal (Normal); Ketones,Urine Trace mg/dL (Negative); Leukocyte Esterase,Urine Small (Negative); Nitrite,Urine Positive (Negative); Protein,Urine Trace mg/dL (Neg-Trace); Urobilinogen,Urine Normal (Normal)
[2018-07-22 17:39] LABS: Bacteria,Urine None Seen per hpf (None-Few); Hyaline Casts,Urine None Seen per lpf (None-Few); Squamous Epithelial Cell,Urine Moderate per lpf (None-Few); WBC,Urine 0-3 per hpf (0-3)
--- NOTE | 2018-07-22 19:27 | Internal Med Progress Note ---
Hospitalist Progress Note - Encounter Date of Encounter: 07/22/18 Time of Encounter: 19:21 - Subjective Interval History: Pt non-verbal and just stares. She is alert. - Exam Vitals: Temp Pulse Resp BP Pulse Ox 98.6 F 107 14 116/79 93 07/22/18 19:00 07/22/18 19:00 07/22/18 19:00 07/22/18 19:00 07/22/18 19:00 Exam: Physical exam: Gen.: Nonacute distress, alert and oriented 3 ENT: Mucosal membranes moist Respiratory: Lungs are clear to auscultation bilaterally without any wheezing rhonchi or rales Cardiovascular: Normal S1 and S2 regular rate rhythm no murmurs rubs or gallops Abdomen: Soft, nontender and nondistended with positive bowel sounds Extremities: No lower extremity edema Skin: Normal color Psych: Catatonic state - Assessment and Plan (1) Elevated troponin Current Visit: Yes Status: Acute Assessment and Plan: Troponin have been flat at 0.04 since admission. Pt does not complain of CP and is not SOB at this time. Echocardiogram EV/EV echocardiogram Impressions: LVEF 50-55%. Mild left ventricular diastolic dysfunction. The right ventricular structure and function appears normal. The pericardium appears normal. Normal IVC dimensions and inspiratory collapse. Technically sub-optimal due to clinical status.Recommend repeating study with (2) Catatonia Current Visit: Yes Status: Acute Assessment and Plan: Patient with outpatient management at [facility] Apparently per report, patient usually has her psychiatric medications adjusted when she experiences her catatonic state Psychiatry consulted with recommendations for Ativan 0.5mg TID (3) Trichomonas vaginitis Current Visit: Yes Status: Acute Assessment and Plan: Will continue Flagyl 100 mg IV twice a day (4) Hypothyroid Current Visit: Yes Status: Acute Assessment and Plan: Continue home dose of levothyroxine (5) COPD (chronic obstructive pulmonary disease) Current Visit: Yes Status: Acute Assessment and Plan: Stable; continue Symbicort (6) Hypokalemia Current Visit: Yes Status: Acute Assessment and Plan: Potassium supplementation given IV. Also gave one time dose Mag. Will recheck K in am. DVT Prophylaxis: Heparin - Summary of Assessment and Plan Summary of Assessment and Plan: Patient is a 57-year-old female with past medical history significant for catatonia, mood disorder, hypertension, hyperlipidemia, hypothyroid and COPD who presents to the ER due to not acting right. Patient not able to give any history due to catatonia and not at the bedside. Per ER staff, patient is managed for catatonia and mood disorder at the [facility]. Apparently patient needs psychiatric medications adjusted when she experiences this catatonic state. In the ER, labs unremarkable other than slightly elevated troponin at 0.04. She was also found to have Trichomonas on urine culture. Head CT showed no acute findings and chest x-ray negative as well. Psychiatry was consulted from the ER and patient will be admitted to the medical service for medical clearance due to elevated troponin. - Time Spent with Patient Total time spent is greater than 50% in coordination of care (as documented) at patient's floor/unit and/or counseling patient: less than 15 minutes Plan of Care Discussed with: patient Internal Medicine: Result - Labs CBC & Chem 7: 07/21/18 11:57 07/21/18 11:57 Labs: Urine 07/22/18 Range/Units 17:20 Urine Color Red A (Yellow) Urine Clarity Clear (Clear) Urine pH 6.0 (5.0-8.0) pH Units Ur Specific [place] 1.030 H (1.010-1.025) Urine Protein Trace (Neg-Trace) mg/dL Urine Glucose (UA) Normal (Normal) mg/dL Consult Discharge Plan - Plan Referrals: NONE,PCP [Primary Care Provider] - (4) Hypothyroid Qualifiers: Hypothyroidism type: unspecified Qualified Code(s): E03.9 - Hypothyroidism, unspecified (5) COPD (chronic obstructive pulmonary disease) Qualifiers: Emphysema type: unspecified Qualified Code(s): J43.9 - Emphysema, unspecified
[2018-07-23] MEDS: *HR* Heparin 5,000 UNIT/ML VIAL SQ SCH ×3 (06:20→21:50)
[2018-07-23 06:42] LABS: BUN/Creatinine Ratio 18 (6-26); Blood Urea Nitrogen 9 mg/dL (6-20); Calcium 9.2 mg/dL (8.6-10.3); Carbon Dioxide 25 mEq/L (23-29); Chloride 102 mEq/L (98-107); Glucose 104 mg/dL (70-105); Osmolality,Calculated 283 (280-300); Potassium 3.7 mEq/L (3.5-5.1); Sodium 137 mEq/L (136-145); eGFR For Non-African Americans > 60 (> 60)
[2018-07-23] MEDS: RisperiDAL 3 MG TABLET PO SCH ×2 (09:13→21:50)
[2018-07-23] MEDS: *HR* LORazepam 0.5 MG TABLET PO SCH ×3 (09:13→21:49)
[2018-07-23] MEDS: MetroNIDAZOLE 500 MG/100 ML 500 MG/100 ML BAG IVPB SCH ×2 (09:13→21:49)
[2018-07-23] MEDS: Multivit/Ca/Min/Fe/FA 1 TAB TABLET PO SCH (09:13)
[2018-07-23] MEDS: Loratadine 10 MG TABLET PO SCH (09:13)
[2018-07-23] MEDS: (Cyclosporine [Restasis] 1 DROP) OP SCH ×2 (09:14→21:50)
[2018-07-23] MEDS: Albuterol 2.5 MG/3 ML NEBULIZER IH SCH ×3 (09:57→20:20)
[2018-07-23] MEDS: Budesonide/Formoterol 160/4.5 1 PUFF INH IH SCH ×2 (09:57→20:20)
--- NOTE | 2018-07-23 16:58 | Consult Note ---
Date of Encounter: 07/23/18 Time of Encounter: 16:30 Assessment & Recommendation (1) Developmental delay, moderate Current visit: Yes Status: Acute (2) Altered mental status Current visit: Yes Status: Acute Qualifiers: Altered mental status type: transient alteration of awareness Qualified Code(s): R40.4 - Transient alteration of awareness (3) Bipolar 1 disorder Current visit: Yes Status: Acute History of Present Illness Requesting Physician: Danish Villeda Reason for consult: agitation History of present illness: Ms. Santana is a 57 year old female for agitation and aggression. Pt has shown a significant reduction in agitation agression. Pt is out of restraints and cooperative with staff. Continue current PRN medications. 1.Interval hx 2.Continue current medications 3.Review current labs 4.Pt had an opportunity to ask questions and discuss current treatment plan. 5.Supportive therapy was provided 6.Pt encouraged to consider group or individual therapy 7.Pt was in agreement with treatment plan. 8.Pt was educated on the risks benefits and side effects of current medications. CC: Danish Villeda Past Med Surg Social Fam HX - Past Medical History Medical history: asthma - Past Psychiatric History Psychiatric history: Reports: bipolar, other (agitation and aggression) Family psychiatric history: Unknown Family History of Suicide: Unknown - Past Surgical History Surgical History: cholecystectomy, hysterectomy - Social History Smoking Status: 2nd Hand Smoke Exposure Smokeless Tobacco Status: No Alcohol use: none Drug use: none - Family History Mother Name: angella Living Status: Hx Family Endocrine Disorder: Yes ("kidney disease") Medications & Allergies Levothyroxine [Synthroid] 88 mcg PO QAM 06/16/16 [History] Loratadine [Claritin] 10 mg PO DAILY 06/16/16 [History] Montelukast [Singulair] 10 mg PO QPM 06/16/16 [History] Multivitamin [Multi-Day Vitamins] 1 tab PO DAILY 06/16/16 [History] Acetaminophen [Tylenol] 1,000 mg PO TID 04/13/17 [History] Albuterol Neb [Proventil Neb] 2.5 mg IH TID 04/13/17 [History] Albuterol Sulfate [Albuterol Inhaler] 2 puff IH Q4HR PRN 04/13/17 [History] Budesonide/Formoterol 160/4.5 [Symbicort 160/4.5] 2 puff IH BIDR 04/13/17 [History] Cyclosporine [Restasis] 1 drop BOTH EYES BID 04/13/17 [History] Benztropine Mesylate 1 mg PO BID 07/19/18 [History] Buspirone HCl [Buspar] 5 mg PO BID 07/19/18 [History] Estrogens, Conjugated [Premarin] 0.3 mg PO DAILY 07/19/18 [History] Pantoprazole Sodium [Protonix] 40 mg PO DAILY 07/19/18 [History] hydrOXYzine HCl [Hydroxyzine HCl] 25 mg PO TID PRN 07/19/18 [History] risperiDONE [RisperDAL] 3 mg PO BID 07/19/18 [History] Allergy/AdvReac Type Severity Reaction Status Date / Time Penicillins Allergy Anaphylaxis Verified 07/03/18 15:12 aspirin AdvReac Gastrointestinal Verified 07/03/18 15:12 Upset caffeine AdvReac Itching Verified 07/03/18 15:12 haloperidol AdvReac Seizure Verified 07/03/18 15:12 Review of Systems Psychiatric: Reports: confusion, irritability (agitation and aggression have res olved), other Psychiatry Exam - Constitutional Vitals: Temp Pulse Resp BP Pulse Ox 98.9 F 88 14 96/64 93 07/23/18 15:32 07/23/18 15:32 07/23/18 16:03 07/23/18 15:32 07/23/18 16:03 General appearance: well-groomed, well-nourished - Musculoskeletal Gait: normal, unsteady Station: relaxed Strength & Tone: normal for patient - Psychiatric Patient Orientation: Yes Other (developmentally delayed) Level of alertness: Alert Behavior: calm, cooperative Psychomotor activity: Slowed Eye Contact: Maintains Eye Contact Mood Description: Euthymic/stable Affect description: congruent with mood Speech Volume: Normal Speech pattern: normal rate (still limited due to reduction in neurocognition) Language & Vocabulary: consistent with education Thought Process: Disorganized, [place], Slowed Thinking Thought Content: Yes Intact Perceptual Disturbances: No Auditory hallucinations, No Visual hallucinations Attention Span Ability: Unable to Focus Memory Description: Remote Impaired Patient Reliability: Not Reliable Historian Fund of knowledge: Yes below average Intelligence Estimate: Below Average Judgment: Poor Insight: Minimal Results - Labs Labs: Laboratory Last Values WBC 7.6 K/mcL (4.3-11.1) 07/21/18 11:57 RBC 4.50 M/mcL (3.82-4.97) 07/21/18 11:57 Hgb 14.1 g/dL (11.5-15.4) 07/21/18 11:57 Hct 41.6 % (35.3-44.9) 07/21/18 11:57 MCV 92.4 fL (83.0-100.0) 07/21/18 11:57 MCH 31.3 pg (28.0-33.3) 07/21/18 11:57 MCHC 33.9 g/dL (31.6-35.5) 07/21/18 11:57 RDW 12.2 % (11.5-14.5) 07/21/18 11:57 Plt Count 219 K/mcL (140-400) 07/21/18 11:57 MPV 10.9 fL (9.4-12.4) 07/21/18 11:57 Immature Gran % 0.3 % (0-4) 07/21/18 11:57 Seg Neutrophils % 67.3 % 07/21/18 11:57 Lymphocytes % 22.0 % 07/21/18 11:57 Monocytes % 9.6 % 07/21/18 11:57 Eosinophils % 0.5 % 07/21/18 11:57 Basophils % 0.3 % 07/21/18 11:57 Neutrophils # 5.1 K/mcL (1.6-8.9) 07/21/18 11:57 Lymphocytes # 1.7 K/mcL (0.6-4.6) 07/21/18 11:57 Monocytes # 0.7 K/mcL (0.0-1.3) 07/21/18 11:57 Eosinophils # 0.0 K/mcL (0.0-0.6) 07/21/18 11:57 Basophils # 0.0 K/mcL (0.0-0.2) 07/21/18 11:57 Sodium 137 mEq/L (136-145) 07/23/18 05:05 Potassium 3.7 mEq/L (3.5-5.1) 07/23/18 05:05 Chloride 102 mEq/L (98-107) 07/23/18 05:05 Carbon Dioxide 25 mEq/L (23-29) 07/23/18 05:05 BUN 9 mg/dL (6-20) 07/23/18 05:05 Creatinine 0.49 mg/dL (0.60-1.20) L 07/23/18 05:05 Est GFR ( Amer) > 60 (> 60) 07/23/18 05:05 Est GFR (Non-Af Amer) > 60 (> 60) 07/23/18 05:05 BUN/Creatinine Ratio 18 (6-26) 07/23/18 05:05 Glucose 104 mg/dL (70-105) 07/23/18 05:05 POC Glucose 127 mg/dL (70-99) H 07/23/18 11:21 Calculated Osmolality 283 (280-300) 07/23/18 05:05 Calcium 9.2 mg/dL (8.6-10.3) 07/23/18 05:05 Venous Ioniz Calcium 1.07 mmol/L (1.15-1.35) L 07/19/18 12:49 Phosphorus 2.9 mg/dL (2.7-4.5) 07/19/18 12:40 Magnesium 1.8 mg/dL (1.6-2.6) 07/22/18 10:48 Total Bilirubin 0.6 mg/dL (0.3-1.0) 07/19/18 12:40 Direct Bilirubin 0.1 mg/dL (0.0-0.2) 07/19/18 12:40 Indirect Bilirubin 0.5 mg/dL (0.0-1.2) 07/19/18 12:40 AST 14 Units/L (13-39) 07/19/18 12:40 ALT 13 Units/L (7-52) 07/19/18 12:40 Alkaline Phosphatase 52 Units/L (34-104) 07/19/18 12:40 Lactate Dehydrogenase 111 Units/L (140-271) L 07/19/18 12:40 Troponin I 0.04 ng/mL (< 0.04) H* 07/20/18 04:02 Serum Total Protein 7.4 g/dL (6.4-8.9) 07/19/18 12:40 Albumin 4.5 g/dL (3.5-5.7) 07/19/18 12:40 Globulin 2.9 g/dL (2.4-3.5) 07/19/18 12:40 Albumin/Globulin Ratio 1.6 (1.1-2.2) 07/19/18 12:40 Urine Color Red (Yellow) A 07/22/18 17:20 Urine Clarity Clear (Clear) 07/22/18 17:20 Urine pH 6.0 pH Units (5.0-8.0) 07/22/18 17:20 Ur Specific [place] 1.030 (1.010-1.025) H 07/22/18 17:20 Urine Protein Trace mg/dL (Neg-Trace) 07/22/18 17:20 Urine Glucose (UA) Normal mg/dL (Normal) 07/22/18 17:20 Urine Ketones Trace mg/dL (Negative) H 07/22/18 17:20 Urine Blood Negative (Negative) 07/22/18 17:20 Urine Nitrite Positive (Negative) A 07/22/18 17:20 Urine Bilirubin Small (Negative) H 07/22/18 17:20 Urine Urobilinogen Normal mg/dL (Normal) 07/22/18 17:20 Ur Leukocyte Esterase Small (Negative) H 07/22/18 17:20 Urine Microscopic RBC 3-5 per hpf (0-3) H 07/22/18 17:20 Urine Microscopic WBC 0-3 per hpf (0-3) 07/22/18 17:20 Ur Squamous Epith Cells Moderate per lpf (None-Few) H 07/22/18 17:20 Urine Bacteria None Seen per hpf (None-Few) 07/22/18 17:20 Hyaline Casts None Seen per lpf (None-Few) 07/22/18 17:20 Urine Trichomonas Present (None Seen) A 07/19/18 12:33 Ur Culture Indicated? YES (NO) A 07/22/18 17:20 Urine Test Negative (Negative) 07/19/18 12:33 Salicylates < 2.5 mg/dL (15.0-30.0) L 07/19/18 12:40 Urine Opiates Screen Negative ng/mL (Ttoodc=918) 07/19/18 12:33 Acetaminophen < 10 mcg/mL (10-20) L 07/19/18 12:40 Ur Barbiturates Screen Negative ng/mL (Bqscqm=019) 07/19/18 12:33 Ur Phencyclidine Scrn Negative ng/mL (Cutoff=25) 07/19/18 12:33 Ur Amphetamines Screen Negative ng/mL (Bwwluu=4062) 07/19/18 12:33 U Benzodiazepines Scrn Negative ng/mL (Mwpfyt=326) 07/19/18 12:33 Urine Cocaine Screen Negative ng/mL (Cutoff= 300) 07/19/18 12:33 U Marijuana (THC) Screen Negative ng/mL (Cutoff = 50) 07/19/18 12:33 Ur Drug Screen Interp See Below 07/19/18 12:33 Ethyl Alcohol < 10 mg/dL (Less than 10) 07/19/18 12:40 Ur C. trach DNA (PCR) NOT DETECTED (Not Detect) 07/19/18 16:03 U N.gonorrhoeae DNA PCR NOT DETECTED (Not Detect) 07/19/18 16:03 Consult Discharge Plan - Plan Additional Instructions: Pt neurocognition continues to improve, will follow loosely, consider D/C pt to appropriate level of care once medically stable. Referrals: NONE,PCP [Primary Care Provider] -
--- NOTE | 2018-07-23 17:10 | Internal Med Progress Note ---
Hospitalist Progress Note - Encounter Date of Encounter: 07/23/18 Time of Encounter: 17:05 - Subjective Interval History: Pt non-verbal and just stares. She is alert. - Exam Vitals: Temp Pulse Resp BP Pulse Ox 98.9 F 88 14 96/64 93 07/23/18 15:32 07/23/18 15:32 07/23/18 16:03 07/23/18 15:32 07/23/18 16:03 Exam: Physical exam: Gen.: Nonacute distress, alert and oriented 3 ENT: Mucosal membranes moist Respiratory: Lungs are clear to auscultation bilaterally without any wheezing rhonchi or rales Cardiovascular: Normal S1 and S2 regular rate rhythm no murmurs rubs or gallops Abdomen: Soft, nontender and nondistended with positive bowel sounds Extremities: No lower extremity edema Skin: Normal color Psych: Catatonic state - Assessment and Plan (1) Elevated troponin Current Visit: Yes Status: Acute Assessment and Plan: Troponin have been flat at 0.04 since admission. Pt does not complain of CP and is not SOB at this time. Stable from medical stand point. Echocardiogram EV/EV echocardiogram Impressions: LVEF 50-55%. Mild left ventricular diastolic dysfunction. The right ventricular structure and function appears normal. The pericardium appears normal. Normal IVC dimensions and inspiratory collapse. Technically sub-optimal due to clinical status.Recommend repeating study with (2) Catatonia Current Visit: Yes Status: Acute Assessment and Plan: Psych following. (3) Trichomonas vaginitis Current Visit: Yes Status: Acute Assessment and Plan: Will continue Flagyl 100 mg IV twice a day and switch to PO at discharge (4) Hypothyroid Current Visit: Yes Status: Acute Assessment and Plan: Continue home dose of levothyroxine (5) COPD (chronic obstructive pulmonary disease) Current Visit: Yes Status: Acute Assessment and Plan: Stable; continue Symbicort (6) Hypokalemia Current Visit: Yes Status: Acute Assessment and Plan: K Corrected. Potassium supplementation given IV and PO. Also gave one time dose Mag. Mag wnl. DVT Prophylaxis: Heparin - Summary of Assessment and Plan Summary of Assessment and Plan: Patient is a 57-year-old female with past medical history significant for catatonia, mood disorder, hypertension, hyperlipidemia, hypothyroid and COPD who presents to the ER due to not acting right. Patient not able to give any history due to catatonia and not at the bedside. Per ER staff, patient is managed for catatonia and mood disorder at the [facility]. Apparently patient needs psychiatric medications adjusted when she experiences this catatonic state. In the ER, labs unremarkable other than slightly elevated troponin at 0.04. She was also found to have Trichomonas on urine culture. Head CT showed no acute findings and chest x-ray negative as well. Psychiatry was consulted from the ER and patient will be admitted to the medical service for medical clearance due to elevated troponin. - Time Spent with Patient Total time spent is greater than 50% in coordination of care (as documented) at patient's floor/unit and/or counseling patient: less than 15 minutes Plan of Care Discussed with: patient Internal Medicine: Result - Labs CBC & Chem 7: 07/21/18 11:57 07/23/18 05:05 Labs: BMP 07/23/18 05:05 Sodium 137 Potassium 3.7 Chloride 102 Carbon Dioxide 25 BUN 9 Creatinine 0.49 L Glucose 104 Calcium 9.2 Urine 07/22/18 Range/Units 17:20 Urine Color Red A (Yellow) Urine Clarity Clear (Clear) Urine pH 6.0 (5.0-8.0) pH Units Ur Specific [place] 1.030 H (1.010-1.025) Urine Protein Trace (Neg-Trace) mg/dL Urine Glucose (UA) Normal (Normal) mg/dL Consult Discharge Plan - Plan Additional Instructions: Pt neurocognition continues to improve, will follow loosely, consider D/C pt to appropriate level of care once medically stable. Referrals: NONE,PCP [Primary Care Provider] - (4) Hypothyroid Qualifiers: Hypothyroidism type: unspecified Qualified Code(s): E03.9 - Hypothyroidism, unspecified (5) COPD (chronic obstructive pulmonary disease) Qualifiers: Emphysema type: unspecified Qualified Code(s): J43.9 - Emphysema, unspecified
[2018-07-24] MEDS: *HR* Heparin 5,000 UNIT/ML VIAL SQ SCH ×3 (05:57→21:13)
[2018-07-24] MEDS: Albuterol 2.5 MG/3 ML NEBULIZER IH SCH ×2 (08:00→18:19)
[2018-07-24] MEDS: Budesonide/Formoterol 160/4.5 1 PUFF INH IH SCH (08:01)
[2018-07-24] MEDS: Loratadine 10 MG TABLET PO SCH (08:25)
[2018-07-24] MEDS: Multivit/Ca/Min/Fe/FA 1 TAB TABLET PO SCH (08:25)
[2018-07-24] MEDS: MetroNIDAZOLE 500 MG/100 ML 500 MG/100 ML BAG IVPB SCH ×2 (08:26→21:12)
[2018-07-24] MEDS: RisperiDAL 3 MG TABLET PO SCH ×2 (08:26→21:16)
[2018-07-24] MEDS: *HR* LORazepam 0.5 MG TABLET PO SCH (08:26)
[2018-07-24] MEDS: (Cyclosporine [Restasis] 1 DROP) OP SCH ×2 (09:30→21:14)
--- NOTE | 2018-07-24 12:35 | Consult Note ---
Date of Encounter: 07/24/18 Time of Encounter: 12:30 Assessment & Recommendation (1) Altered mental status Current visit: Yes Status: Acute Qualifiers: Altered mental status type: transient alteration of awareness Qualified Code(s): R40.4 - Transient alteration of awareness (2) Catatonia Current visit: Yes Status: Acute (3) Bipolar 1 disorder Current visit: Yes Status: Acute History of Present Illness Patient: new to practice Requesting Physician: Danish Villeda Reason for consult: catatonia History of present illness: Patient is a 57-year-old female with past medical history significant for catatonia, mood disorder, hypertension, hyperlipidemia, hypothyroid and COPD who presents to the ER due to not acting right. Patient not able to give any history due to catatonia and not at the bedside. Per ER staff, patient is managed for catatonia and mood disorder at the [facility]. Apparently patient needs psychiatric Ms. Santana is a 57 year old , female, who presents for catatoina, mood and depression to the emergency department. Pt was limited in conversation due to catatoina . Pt noted reports a hx of catatoina. Pt noted she felt safe and comfortable on the unit. Pt was in agreement with treatment plan. Pt noted that she is doing better today. Pt noted she slept Okay. Pt noted her appetite is reduced. Pt rated her depression a 5, on a scale of zero to ten with ten being the worst and zero being none. Pt rate her anxiety a 5, on the same scale. Pt denied any current visual or auditory hallucinations. Pt denied any thoughts to harm herself or anyone else. Pt was educated on the risks benefits and side-effects of these medications including no medication, pt was in agreement. pt denied any hx of Hep C, TBIs HIV or seizures. No TD noted, AIMS=0 1.Interval hx 2.Continue current medications 3.Review current labs 4.Pt had an opportunity to ask questions and discuss current treatment plan. 5.Supportive therapy was provided 6.Pt encouraged to consider group or individual therapy 7.Pt was in agreement with treatment plan. 8.Pt was educated on the risks benefits and side effects of current medications. 9. Continue lorazpam 2 mg PO TID for catatonia CC: Danish Villeda Past Med Surg Social Fam HX - Past Medical History Medical history: asthma - Past Psychiatric History Psychiatric history: Reports: depression, previous psychiatric hospitalization Family psychiatric history: Yes Family History of Suicide: Unknown - Past Surgical History Surgical History: cholecystectomy, hysterectomy - Social History Smoking Status: 2nd Hand Smoke Exposure Smokeless Tobacco Status: No Alcohol use: none Drug use: none - Family History Mother Name: angella Living Status: Hx Family Endocrine Disorder: Yes ("kidney disease") Medications & Allergies Levothyroxine [Synthroid] 88 mcg PO QAM 06/16/16 [History] Loratadine [Claritin] 10 mg PO DAILY 06/16/16 [History] Montelukast [Singulair] 10 mg PO QPM 06/16/16 [History] Multivitamin [Multi-Day Vitamins] 1 tab PO DAILY 06/16/16 [History] Acetaminophen [Tylenol] 1,000 mg PO TID 04/13/17 [History] Albuterol Neb [Proventil Neb] 2.5 mg IH TID 04/13/17 [History] Albuterol Sulfate [Albuterol Inhaler] 2 puff IH Q4HR PRN 04/13/17 [History] Budesonide/Formoterol 160/4.5 [Symbicort 160/4.5] 2 puff IH BIDR 04/13/17 [History] Cyclosporine [Restasis] 1 drop BOTH EYES BID 04/13/17 [History] Benztropine Mesylate 1 mg PO BID 07/19/18 [History] Buspirone HCl [Buspar] 5 mg PO BID 07/19/18 [History] Estrogens, Conjugated [Premarin] 0.3 mg PO DAILY 07/19/18 [History] Pantoprazole Sodium [Protonix] 40 mg PO DAILY 07/19/18 [History] hydrOXYzine HCl [Hydroxyzine HCl] 25 mg PO TID PRN 07/19/18 [History] risperiDONE [RisperDAL] 3 mg PO BID 07/19/18 [History] Allergy/AdvReac Type Severity Reaction Status Date / Time Penicillins Allergy Anaphylaxis Verified 07/03/18 15:12 aspirin AdvReac Gastrointestinal Verified 07/03/18 15:12 Upset caffeine AdvReac Itching Verified 07/03/18 15:12 haloperidol AdvReac Seizure Verified 07/03/18 15:12 Review of Systems Constitutional: Denies: fever, chills, weakness, weight change Eyes: Denies: eye pain, vision change Ears, Nose, Throat: Denies: ear pain, throat pain, dental pain, hearing loss, congestion Cardiovascular: Denies: chest pain, palpitations, dyspnea on exertion Respiratory: Denies: cough, dyspnea, wheezes Gastrointestinal: Denies: abdominal pain, nausea, vomiting, diarrhea, constipation Genitourinary female: Denies: urgency, dysuria, frequency, abnormal menses, dyspareunia Musculoskeletal: Denies: joint swelling, joint pain Integumentary: Denies: rash, lesions, pruritus Neurological: Denies: headache, weakness, numbness, memory loss Psychiatric: Reports: depression (catatonic), confusion, other Endocrine: Denies: fatigue, heat or cold intolerance Hematologic/Lymphatic: Denies: easy bruising, lymphadenopathy Allergic/Immunologic: Denies: urticaria, itchy eyes Psychiatry Exam - Constitutional Vitals: Temp Pulse Resp BP Pulse Ox 98.0 F 92 19 102/66 94 07/24/18 11:34 07/24/18 11:34 07/24/18 11:34 07/24/18 11:34 07/24/18 11:34 General appearance: age & developmentally appropriate, well-groomed, well- nourished - Musculoskeletal Gait: normal Station: relaxed Strength & Tone: normal for patient - Psychiatric Patient Orientation: Yes Person, Yes Time, Yes Place Level of alertness: Alert Behavior: calm, cooperative, withdrawn Psychomotor activity: Catatonic Eye Contact: Maintains Eye Contact Mood Description: Depressed Affect description: congruent with mood, other (catatonic) Speech Volume: No variation in volume, No speech Speech pattern: monotone Language & Vocabulary: consistent with education Thought Process: Linear, Goal Oriented Thought Content: No Suicidal ideation, No Homicidal ideation, No Overt delusions Perceptual Disturbances: No Auditory hallucinations, No Visual hallucinations Attention Span Ability: Capable of Focused Attention Memory Description: Grossly Intact Patient Reliability: Reliable Historian Fund of knowledge: Yes abstraction ability, Yes aware of current events Intelligence Estimate: Average Judgment: Limited Insight: Partial Results - Labs Labs: Laboratory Last Values WBC 7.6 K/mcL (4.3-11.1) 07/21/18 11:57 RBC 4.50 M/mcL (3.82-4.97) 07/21/18 11:57 Hgb 14.1 g/dL (11.5-15.4) 07/21/18 11:57 Hct 41.6 % (35.3-44.9) 07/21/18 11:57 MCV 92.4 fL (83.0-100.0) 07/21/18 11:57 MCH 31.3 pg (28.0-33.3) 07/21/18 11:57 MCHC 33.9 g/dL (31.6-35.5) 07/21/18 11:57 RDW 12.2 % (11.5-14.5) 07/21/18 11:57 Plt Count 219 K/mcL (140-400) 07/21/18 11:57 MPV 10.9 fL (9.4-12.4) 07/21/18 11:57 Immature Gran % 0.3 % (0-4) 07/21/18 11:57 Seg Neutrophils % 67.3 % 07/21/18 11:57 Lymphocytes % 22.0 % 07/21/18 11:57 Monocytes % 9.6 % 07/21/18 11:57 Eosinophils % 0.5 % 07/21/18 11:57 Basophils % 0.3 % 07/21/18 11:57 Neutrophils # 5.1 K/mcL (1.6-8.9) 07/21/18 11:57 Lymphocytes # 1.7 K/mcL (0.6-4.6) 07/21/18 11:57 Monocytes # 0.7 K/mcL (0.0-1.3) 07/21/18 11:57 Eosinophils # 0.0 K/mcL (0.0-0.6) 07/21/18 11:57 Basophils # 0.0 K/mcL (0.0-0.2) 07/21/18 11:57 Sodium 137 mEq/L (136-145) 07/23/18 05:05 Potassium 3.7 mEq/L (3.5-5.1) 07/23/18 05:05 Chloride 102 mEq/L (98-107) 07/23/18 05:05 Carbon Dioxide 25 mEq/L (23-29) 07/23/18 05:05 BUN 9 mg/dL (6-20) 07/23/18 05:05 Creatinine 0.49 mg/dL (0.60-1.20) L 07/23/18 05:05 Est GFR ( Amer) > 60 (> 60) 07/23/18 05:05 Est GFR (Non-Af Amer) > 60 (> 60) 07/23/18 05:05 BUN/Creatinine Ratio 18 (6-26) 07/23/18 05:05 Glucose 104 mg/dL (70-105) 07/23/18 05:05 POC Glucose 100 mg/dL (70-99) H 07/23/18 17:04 Calculated Osmolality 283 (280-300) 07/23/18 05:05 Calcium 9.2 mg/dL (8.6-10.3) 07/23/18 05:05 Venous Ioniz Calcium 1.07 mmol/L (1.15-1.35) L 07/19/18 12:49 Phosphorus 2.9 mg/dL (2.7-4.5) 07/19/18 12:40 Magnesium 1.8 mg/dL (1.6-2.6) 07/22/18 10:48 Total Bilirubin 0.6 mg/dL (0.3-1.0) 07/19/18 12:40 Direct Bilirubin 0.1 mg/dL (0.0-0.2) 07/19/18 12:40 Indirect Bilirubin 0.5 mg/dL (0.0-1.2) 07/19/18 12:40 AST 14 Units/L (13-39) 07/19/18 12:40 ALT 13 Units/L (7-52) 07/19/18 12:40 Alkaline Phosphatase 52 Units/L (34-104) 07/19/18 12:40 Lactate Dehydrogenase 111 Units/L (140-271) L 07/19/18 12:40 Troponin I 0.04 ng/mL (< 0.04) H* 07/20/18 04:02 Serum Total Protein 7.4 g/dL (6.4-8.9) 07/19/18 12:40 Albumin 4.5 g/dL (3.5-5.7) 07/19/18 12:40 Globulin 2.9 g/dL (2.4-3.5) 07/19/18 12:40 Albumin/Globulin Ratio 1.6 (1.1-2.2) 07/19/18 12:40 Urine Color Red (Yellow) A 07/22/18 17:20 Urine Clarity Clear (Clear) 07/22/18 17:20 Urine pH 6.0 pH Units (5.0-8.0) 07/22/18 17:20 Ur Specific [place] 1.030 (1.010-1.025) H 07/22/18 17:20 Urine Protein Trace mg/dL (Neg-Trace) 07/22/18 17:20 Urine Glucose (UA) Normal mg/dL (Normal) 07/22/18 17:20 Urine Ketones Trace mg/dL (Negative) H 07/22/18 17:20 Urine Blood Negative (Negative) 07/22/18 17:20 Urine Nitrite Positive (Negative) A 07/22/18 17:20 Urine Bilirubin Small (Negative) H 07/22/18 17:20 Urine Urobilinogen Normal mg/dL (Normal) 07/22/18 17:20 Ur Leukocyte Esterase Small (Negative) H 07/22/18 17:20 Urine Microscopic RBC 3-5 per hpf (0-3) H 07/22/18 17:20 Urine Microscopic WBC 0-3 per hpf (0-3) 07/22/18 17:20 Ur Squamous Epith Cells Moderate per lpf (None-Few) H 07/22/18 17:20 Urine Bacteria None Seen per hpf (None-Few) 07/22/18 17:20 Hyaline Casts None Seen per lpf (None-Few) 07/22/18 17:20 Urine Trichomonas Present (None Seen) A 07/19/18 12:33 Ur Culture Indicated? YES (NO) A 07/22/18 17:20 Urine Test Negative (Negative) 07/19/18 12:33 Salicylates < 2.5 mg/dL (15.0-30.0) L 07/19/18 12:40 Urine Opiates Screen Negative ng/mL (Zgeidx=050) 07/19/18 12:33 Acetaminophen < 10 mcg/mL (10-20) L 07/19/18 12:40 Ur Barbiturates Screen Negative ng/mL (Bepmrx=964) 07/19/18 12:33 Ur Phencyclidine Scrn Negative ng/mL (Cutoff=25) 07/19/18 12:33 Ur Amphetamines Screen Negative ng/mL (Jyapmr=9721) 07/19/18 12:33 U Benzodiazepines Scrn Negative ng/mL (Bmvjpx=788) 07/19/18 12:33 Urine Cocaine Screen Negative ng/mL (Cutoff= 300) 07/19/18 12:33 U Marijuana (THC) Screen Negative ng/mL (Cutoff = 50) 07/19/18 12:33 Ur Drug Screen Interp See Below 07/19/18 12:33 Ethyl Alcohol < 10 mg/dL (Less than 10) 07/19/18 12:40 Ur C. trach DNA (PCR) NOT DETECTED (Not Detect) 07/19/18 16:03 U N.gonorrhoeae DNA PCR NOT DETECTED (Not Detect) 07/19/18 16:03 Consult Discharge Plan - Plan Additional Instructions: Pt neurocognition continues to improve, will follow loosely, consider D/C pt to appropriate level of care once medically stable. Referrals: NONE,PCP [Primary Care Provider] -
[2018-07-24] MEDS: *HR* LORazepam 1 MG TABLET PO SCH ×2 (14:05→21:11)
--- NOTE | 2018-07-24 17:53 | Internal Med Progress Note ---
Hospitalist Progress Note - Encounter Date of Encounter: 07/24/18 Time of Encounter: 17:51 - Subjective Interval History: Pt non-verbal and just stares. She is alert. - Exam Vitals: Temp Pulse Resp BP Pulse Ox 98.0 F 92 19 102/66 94 07/24/18 11:34 07/24/18 11:34 07/24/18 11:34 07/24/18 11:34 07/24/18 11:34 Exam: Physical exam: Gen.: Nonacute distress, alert and oriented but non-verbal ENT: Mucosal membranes moist Respiratory: Lungs are clear to auscultation bilaterally without any wheezing rhonchi or rales Cardiovascular: Normal S1 and S2 regular rate rhythm no murmurs rubs or gallops Abdomen: Soft, nontender and nondistended with positive bowel sounds Extremities: No lower extremity edema Skin: Normal color Psych: Catatonic state - Assessment and Plan (1) Elevated troponin Current Visit: Yes Status: Acute Assessment and Plan: Troponin have been flat at 0.04 since admission. Pt does not complain of CP and is not SOB at this time. Stable from medical stand point. Echocardiogram EV/EV echocardiogram Impressions: LVEF 50-55%. Mild left ventricular diastolic dysfunction. The right ventricular structure and function appears normal. The pericardium appears normal. Normal IVC dimensions and inspiratory collapse. Technically sub-optimal due to clinical status.Recommend repeating study with (2) Catatonia Current Visit: Yes Status: Acute Assessment and Plan: Psych following and recommending placement in SNF. SW tried contacting but had not heard from him yet. Awaiting placement (3) Trichomonas vaginitis Current Visit: Yes Status: Acute Assessment and Plan: Will continue Flagyl 100 mg IV twice a day and switch to PO at discharge (4) Hypothyroid Current Visit: Yes Status: Acute Assessment and Plan: Continue home dose of levothyroxine (5) COPD (chronic obstructive pulmonary disease) Current Visit: Yes Status: Acute Assessment and Plan: Stable; continue Symbicort (6) Hypokalemia Current Visit: Yes Status: Acute Assessment and Plan: K Corrected. Potassium supplementation given IV and PO. Also gave one time dose Mag. Mag wnl. DVT Prophylaxis: Heparin - Summary of Assessment and Plan Summary of Assessment and Plan: Patient is a 57-year-old female with past medical history significant for catatonia, mood disorder, hypertension, hyperlipidemia, hypothyroid and COPD who presents to the ER due to not acting right. Patient not able to give any history due to catatonia and not at the bedside. Per ER staff, patient is managed for catatonia and mood disorder at the [facility]. Apparently patient needs psychiatric medications adjusted when she experiences this catatonic state. In the ER, labs unremarkable other than slightly elevated troponin at 0.04. She was also found to have Trichomonas on urine culture. Head CT showed no acute findings and chest x-ray negative as well. Psychiatry was consulted from the ER and patient will be admitted to the medical service for medical clearance due to elevated troponin. - Time Spent with Patient Total time spent is greater than 50% in coordination of care (as documented) at patient's floor/unit and/or counseling patient: less than 15 minutes Plan of Care Discussed with: patient Internal Medicine: Result - Labs CBC & Chem 7: 07/21/18 11:57 07/23/18 05:05 Consult Discharge Plan - Plan Additional Instructions: Pt neurocognition continues to improve, will follow loosely, consider D/C pt to appropriate level of care once medically stable. Referrals: NONE,PCP [Primary Care Provider] - __ (4) Hypothyroid Qualifiers: Hypothyroidism type: unspecified Qualified Code(s): E03.9 - Hypothyroidism, unspecified (5) COPD (chronic obstructive pulmonary disease) Qualifiers: Emphysema type: unspecified Qualified Code(s): J43.9 - Emphysema, unspecified
[2018-07-25] MEDS: Budesonide/Formoterol 160/4.5 1 PUFF INH IH SCH ×3 (00:10→20:57)
[2018-07-25] MEDS: Albuterol 2.5 MG/3 ML NEBULIZER IH SCH ×4 (00:10→20:58)
[2018-07-25] MEDS: *HR* Heparin 5,000 UNIT/ML VIAL SQ SCH ×3 (06:08→22:15)
[2018-07-25] MEDS: MetroNIDAZOLE 500 MG/100 ML 500 MG/100 ML BAG IVPB SCH ×2 (08:15→22:16)
[2018-07-25] MEDS: Multivit/Ca/Min/Fe/FA 1 TAB TABLET PO SCH (08:16)
[2018-07-25] MEDS: RisperiDAL 3 MG TABLET PO SCH ×2 (08:16→22:15)
[2018-07-25] MEDS: Loratadine 10 MG TABLET PO SCH (08:16)
[2018-07-25] MEDS: *HR* LORazepam 1 MG TABLET PO SCH ×3 (08:16→22:15)
[2018-07-25] MEDS: (Cyclosporine [Restasis] 1 DROP) OP SCH ×2 (08:17→21:00)
--- NOTE | 2018-07-25 19:26 | Internal Med Progress Note ---
Hospitalist Progress Note - Encounter Date of Encounter: 07/25/18 Time of Encounter: 18:00 - Subjective Interval History: Patient is a 57-year-old female with a past medical history significant for mood disorders catatonia hypertension hyperlipidemia hypothyroidism and COPD. She was seen through the emergency room for "not acting right". It is reported that her catatonia and mood disorders are suicidal [facility]. Initial was evaluated her home psychiatry yesterday and is consistent with some neuro cognition improvement, with loosely following conversations, and they feel that what she is medically stable that she may be discharged to the appropriate level of care. Today patient was able to give a brief description of her day, this provider stating that she was able to sit up in the chair beside her bed for almost 3 hours. She is excited that her is coming to see her today. And she is aware that she has a Nuñez catheter due to the inability to void. After this brief dialogue patient did appear to lose concentration and became catatonic once again, was staring off nondrinking nonresponse. She continues to receive Flagyl for trichomoniasis, and his K corrected with potassium supplementation given IV and by mouth. Troponins have remained stable at 0.04 since, admission. When patient is physically stable it is noted that she probably could be discharged in the morning, if appropriate hilum measures have been completed - Exam Vitals: Temp Pulse Resp BP Pulse Ox 98.6 F 74 16 115/76 93 07/25/18 19:11 07/25/18 19:11 07/25/18 19:11 07/25/18 19:11 07/25/18 19:11 Exam: Stable - Assessment and Plan (1) Elevated troponin Current Visit: Yes Status: Acute Assessment and Plan: Stable 0.04 (2) Catatonia Current Visit: Yes Status: Acute Assessment and Plan: She was evaluated per psychiatry and it is felt that when she is medically stable she may be discharged to an appropriate home setting. I concur that this patient once sarah antibiotics have been completed can be switched to a by mouth formulation that she may be discharged. It is unclear if this patient would be safe to go home for self-care. It is a possibility that she will need in-home assistance for long-term care due to catatonia. child protective services specialist and cycle continuing to follow (3) Trichomonas vaginitis Current Visit: Yes Status: Acute Assessment and Plan: Continues with Flagyl (4) Hypothyroid Current Visit: Yes Status: Acute Assessment and Plan: Stable and continues with levothyroxine (5) COPD (chronic obstructive pulmonary disease) Current Visit: Yes Status: Acute Assessment and Plan: No respiratory distress SPO2 is are above 95% on room air we will continue to monitor (6) Hypokalemia Current Visit: Yes Status: Acute Assessment and Plan: Potassium is normal 3.7 DVT Prophylaxis: Per protocol - Summary of Assessment and Plan Summary of Assessment and Plan: We will consider placement options for this patient for potential for discharge in the next day or so overall consult with social media job titles to see if she is appropriate for home placement versus long-term care placement versus [facility] - Time Spent with Patient Total time spent is greater than 50% in coordination of care (as documented) at patient's floor/unit and/or counseling patient: less than 15 minutes Plan of Care Discussed with: patient Internal Medicine: Result - Labs CBC & Chem 7: 07/21/18 11:57 07/23/18 05:05 Consult Discharge Plan - Plan Additional Instructions: Pt neurocognition continues to improve, will follow loosely, consider D/C pt to appropriate level of care once medically stable. Referrals: NONE,PCP [Primary Care Provider] - (4) Hypothyroid Qualifiers: Hypothyroidism type: unspecified Qualified Code(s): E03.9 - Hypothyroidism, unspecified (5) COPD (chronic obstructive pulmonary disease) Qualifiers: Emphysema type: unspecified Qualified Code(s): J43.9 - Emphysema, unspecified
[2018-07-26] MEDS: *HR* Heparin 5,000 UNIT/ML VIAL SQ SCH ×3 (06:43→22:17)
[2018-07-26] MEDS: Budesonide/Formoterol 160/4.5 1 PUFF INH IH SCH ×2 (07:22→20:12)
[2018-07-26] MEDS: Albuterol 2.5 MG/3 ML NEBULIZER IH SCH ×3 (07:22→16:35)
[2018-07-26] MEDS: (Cyclosporine [Restasis] 1 DROP) OP SCH ×2 (09:05→22:12)
[2018-07-26] MEDS: RisperiDAL 3 MG TABLET PO SCH ×2 (09:12→21:22)
[2018-07-26] MEDS: Multivit/Ca/Min/Fe/FA 1 TAB TABLET PO SCH (09:12)
[2018-07-26] MEDS: MetroNIDAZOLE 500 MG/100 ML 500 MG/100 ML BAG IVPB SCH (09:12)
[2018-07-26] MEDS: *HR* LORazepam 1 MG TABLET PO SCH ×3 (09:12→20:59)
[2018-07-26] MEDS: Loratadine 10 MG TABLET PO SCH (09:12)
--- NOTE | 2018-07-26 16:39 | Internal Med Progress Note ---
Hospitalist Progress Note - Encounter Date of Encounter: 07/26/18 Time of Encounter: 16:35 - Subjective Interval History: Ms. Santana is a 57 y/o F with known PMH of HTN, HLD, Hypothyroidism, COPD pt admitted here for altered mental status. She happened to have trichomonas vaginitis so started on Flagyl which she finished the 7 days course today. She is alert, awake and O to self only. Mentation salgado looks confused which seems to be her baseline. She denied any CP / SOB. Tolerating pO intake ok. - Exam Vitals: Temp Pulse Resp BP Pulse Ox 98.5 F 86 17 96/64 94 07/26/18 16:10 07/26/18 16:10 07/26/18 16:10 07/26/18 16:10 07/26/18 16:10 Exam: Gen: Alert, awake, Oriented to self only Chest: Diminished breath sounds B/L, No wheezing, No crackles, No rales Heart: S1S2+ RRR No murmurs Abd: Soft, NT, BS +, No organomegaly Ext: No edema, pulses are palpable, No calf tenderness Neuro : Benign findings Psych - confused,, catatonic Skin: No rash. - Assessment and Plan (1) Catatonia Current Visit: Yes Status: Acute Assessment and Plan: Evaluated by psychiatrist Started her on Ativan for C[place]at[place] Need placement Waiting on [facility] mental health screen before she is d/c d ECF Medically stable to d/c to ECF (2) Elevated troponin Current Visit: Yes Status: Acute Assessment and Plan: No acute EKG changes No CP No further work up needed TTE showed preserved LVEF< no wall motion abnormality (3) Trichomonas vaginitis Current Visit: Yes Status: Acute Assessment and Plan: Finished 7 days course of Flagyl (4) Hypothyroid Current Visit: Yes Status: Acute Assessment and Plan: Stable and continues with levothyroxine (5) COPD (chronic obstructive pulmonary disease) Current Visit: Yes Status: Acute Assessment and Plan: No respiratory distress SPO2 is are above 95% on room air we will continue to monitor on PRN Neb treatment - Time Spent with Patient Total time spent is greater than 50% in coordination of care (as documented) at patient's floor/unit and/or counseling patient: Internal Medicine: Result - Labs CBC & Chem 7: 07/21/18 11:57 10/30/18 05:05 Consult Discharge Plan - Plan Additional Instructions: Pt neurocognition continues to improve, will follow loosely, consider D/C pt to appropriate level of care once medically stable. Referrals: NONE,PCP [Primary Care Provider] - (4) Hypothyroid Qualifiers: Hypothyroidism type: unspecified Qualified Code(s): E03.9 - Hypothyroidism, unspecified (5) COPD (chronic obstructive pulmonary disease) Qualifiers: Emphysema type: unspecified Qualified Code(s): J43.9 - Emphysema, unspecified
[2018-07-27] MEDS: *HR* Heparin 5,000 UNIT/ML VIAL SQ SCH ×3 (06:30→20:56)
--- NOTE | 2018-07-27 07:58 | Internal Med Progress Note ---
Hospitalist Progress Note - Encounter Date of Encounter: 07/27/18 Time of Encounter: 09:00 - Subjective Interval History: awake, slow to answer questions but answers all questions and follows all commands. denies pain, chest pain. denies sob. o2 nc in place as it has been throughout admission on chart review. she denies o2 at home. + cough, she cannot describe cough further. hpi and ros limited by catatonic features. - Exam Vitals: Temp Pulse Resp BP Pulse Ox 98.7 F 85 16 104/69 97 07/27/18 03:35 07/27/18 03:35 07/27/18 03:35 07/27/18 03:35 07/27/18 03:35 Exam: General: awake, alert, appears stated age HEENT:EOM intact, pupils equal, round, moist mucus membranes Cardiovascular:regular rate and rhythm, normal S1 & S2, no murmur Lungs:Normal breath sounds, no wheezes, or crackles. Normal respiratory effort on o2 nc 2l Neurological: AAOx to self, follows commands, answers simple yes/no questions, does have some slow spontaneous speech Skin:Normal color, warm, dry - Assessment and Plan (1) Catatonia Current Visit: Yes Status: Acute Assessment and Plan: History of Mood Disorder Evaluated by psychiatrist Started her on Ativan for Catatonia -cont cogentin, risperdal, buspar, prn vistaril Needs placement Waiting on [facility] mental health screen before she is d/c d ECF Medically stable to d/c to ECF (2) Elevated troponin Current Visit: Yes Status: Acute Assessment and Plan: No acute EKG changes No CP TTE showed preserved LVEF< no wall motion abnormality no further work up has been required this admission (3) Trichomonas vaginitis Current Visit: Yes Status: Acute Assessment and Plan: Finished 7 days course of Flagyl (4) Hypothyroid Current Visit: Yes Status: Acute Assessment and Plan: Stable and continues with levothyroxine (5) COPD (chronic obstructive pulmonary disease) Current Visit: Yes Status: Chronic Assessment and Plan: No respiratory distress SPO2 is are above 95% on room air on PRN Neb treatment and cont home meds -?home o2--dont see that documented anywhere -has been on 2L NC this admission, admit cxr 07/19 no acute findings, pt admits to cough, repeat CXR today, wean o2 DVT Prophylaxis: hep sq - Time Spent with Patient Total time spent is greater than 50% in coordination of care (as documented) at patient's floor/unit and/or counseling patient: 25 - 35 minutes Plan of Care Discussed with: patient Internal Medicine: Result - Labs CBC & Chem 7: 07/21/18 11:57 07/23/18 05:05 Consult Discharge Plan - Plan Additional Instructions: Pt neurocognition continues to improve, will follow loosely, consider D/C pt to appropriate level of care once medically stable. Referrals: NONE,PCP [Primary Care Provider] - (4) Hypothyroid Qualifiers: Hypothyroidism type: unspecified Qualified Code(s): E03.9 - Hypothyroidism, unspecified (5) COPD (chronic obstructive pulmonary disease) Qualifiers: Emphysema type: unspecified Qualified Code(s): J43.9 - Emphysema, unspecified
[2018-07-27] MEDS: *HR* LORazepam 1 MG TABLET PO SCH ×3 (08:29→20:56)
[2018-07-27] MEDS: Multivit/Ca/Min/Fe/FA 1 TAB TABLET PO SCH (08:29)
[2018-07-27] MEDS: Loratadine 10 MG TABLET PO SCH (08:29)
[2018-07-27] MEDS: (Cyclosporine [Restasis] 1 DROP) OP SCH ×2 (08:30→20:56)
[2018-07-27] MEDS: RisperiDAL 3 MG TABLET PO SCH ×2 (08:32→20:56)
[2018-07-27] MEDS: Budesonide/Formoterol 160/4.5 1 PUFF INH IH SCH ×2 (08:40→22:23)
[2018-07-28 05:43] LABS: BUN/Creatinine Ratio 22 (6-26); Blood Urea Nitrogen 13 mg/dL (6-20); Calcium 9.9 mg/dL (8.6-10.3); Carbon Dioxide 27 mEq/L (23-29); Chloride 103 mEq/L (98-107); Glucose 95 mg/dL (70-105); Magnesium 2.1 mg/dL (1.6-2.6); Osmolality,Calculated 288 (280-300); Potassium 4.3 mEq/L (3.5-5.1); Sodium 139 mEq/L (136-145); eGFR For Non-African Americans > 60 (> 60)
[2018-07-28] MEDS: *HR* Heparin 5,000 UNIT/ML VIAL SQ SCH ×3 (06:22→21:38)
[2018-07-28] MEDS: Budesonide/Formoterol 160/4.5 1 PUFF INH IH SCH ×2 (08:18→20:28)
[2018-07-28] MEDS: *HR* LORazepam 1 MG TABLET PO SCH ×3 (08:40→21:37)
[2018-07-28] MEDS: Multivit/Ca/Min/Fe/FA 1 TAB TABLET PO SCH (08:40)
[2018-07-28] MEDS: Loratadine 10 MG TABLET PO SCH (08:41)
[2018-07-28] MEDS: RisperiDAL 3 MG TABLET PO SCH ×2 (08:41→21:37)
[2018-07-28] MEDS: (Cyclosporine [Restasis] 1 DROP) OP SCH ×2 (10:06→21:48)
--- NOTE | 2018-07-28 11:32 | Internal Med Progress Note ---
Hospitalist Progress Note - Encounter Date of Encounter: 07/28/18 Time of Encounter: 08:45 - Subjective Interval History: awake, slow to answer questions but answers all questions and follows all commands. no cough today, is on room air without sob. she has no complaints. hpi/ros limited by her catatonic features. no family present - Exam Vitals: Temp Pulse Resp BP Pulse Ox 97.9 F 100 12 93/65 93 07/28/18 07:56 07/28/18 07:56 07/28/18 08:26 07/28/18 07:56 07/28/18 09:00 Exam: General: awake, alert, appears stated age HEENT:EOM intact, pupils equal, round Cardiovascular:regular rate and rhythm, normal S1 & S2, no murmur Lungs:Normal breath sounds, no wheezes, or crackles. Normal respiratory effort on ra Neurological: AAOx to self, follows commands, answers simple questions, does have some slow spontaneous speech Skin:Normal color, warm, dry - Assessment and Plan (1) Catatonia Current Visit: Yes Status: Acute Assessment and Plan: History of Mood Disorder Evaluated by psychiatrist Started her on Ativan for Catatonia -cont cogentin, risperdal, buspar, prn vistaril Needs placement Waiting on [facility] health screen before she is d/c d ECF Medically stable to d/c to ECF i personally discussed with RIO 07/27 and 4 business days from request is when [facility] screen will be done, request sunday, so pt likely will be in house throughout the upcoming week (2) Elevated troponin Current Visit: Yes Status: Acute Assessment and Plan: No acute EKG changes No CP TTE showed preserved LVEF< no wall motion abnormality no further work up has been required this admission (3) Trichomonas vaginitis Current Visit: Yes Status: Acute Assessment and Plan: Finished 7 days course of Flagyl (4) Hypothyroid Current Visit: Yes Status: Acute Assessment and Plan: Stable and continues with levothyroxine (5) COPD (chronic obstructive pulmonary disease) Current Visit: Yes Status: Chronic Assessment and Plan: No respiratory distress on PRN Neb treatment and cont home meds -?home o2--dont see that documented anywhere -has been on 2L NC this admission, admit cxr 07/19 no acute findings, pt admitted to cough, repeat CXR 07/27 unremarkable - have weaned o2 to room air now DVT Prophylaxis: hep sq - Time Spent with Patient Total time spent is greater than 50% in coordination of care (as documented) at patient's floor/unit and/or counseling patient: less than 15 minutes Plan of Care Discussed with: patient Internal Medicine: Result - Labs CBC & Chem 7: 07/21/18 11:57 07/28/18 04:59 Labs: BMP 07/28/18 04:59 Sodium 139 Potassium 4.3 Chloride 103 Carbon Dioxide 27 BUN 13 Creatinine 0.59 L Glucose 95 Calcium 9.9 - Impressions Impressions Chest X-Ray 07/27/18 09:43 IMPRESSION: No acute process. D/ / Tejas Sawyer MD / Tejas Sawyer MD Interpreting Provider: Tejas Sawyer MD Consult Discharge Plan - Plan Additional Instructions: Pt neurocognition continues to improve, will follow loosely, consider D/C pt to appropriate level of care once medically stable. Referrals: NONE,PCP [Primary Care Provider] - (4) Hypothyroid Qualifiers: Hypothyroidism type: unspecified Qualified Code(s): E03.9 - Hypothyroidism, unspecified (5) COPD (chronic obstructive pulmonary disease) Qualifiers: Emphysema type: unspecified Qualified Code(s): J43.9 - Emphysema, unspecified
[2018-07-29] MEDS: *HR* Heparin 5,000 UNIT/ML VIAL SQ SCH ×3 (06:12→20:32)
[2018-07-29] MEDS: Acetaminophen 325 MG TABLET PO PRN ×2 (06:12→20:36)
[2018-07-29] MEDS: Budesonide/Formoterol 160/4.5 1 PUFF INH IH SCH ×2 (07:38→21:48)
--- NOTE | 2018-07-29 08:35 | Internal Med Progress Note ---
<HiraAna M M - Last Filed: 07/29/18 14:27> Hospitalist Progress Note - Encounter Date of Encounter: 07/29/18 - Exam Vitals: Temp Pulse Resp BP Pulse Ox 98.5 F 106 16 105/74 95 07/29/18 11:12 07/29/18 11:12 07/29/18 11:12 07/29/18 11:12 07/29/18 11:12 - Assessment and Plan (1) Elevated troponin Current Visit: Yes Status: Acute (2) Catatonia Current Visit: Yes Status: Acute (3) Trichomonas vaginitis Current Visit: Yes Status: Acute (4) Hypothyroid Current Visit: Yes Status: Acute (5) COPD (chronic obstructive pulmonary disease) Current Visit: Yes Status: Chronic - Time Spent with Patient Total time spent is greater than 50% in coordination of care (as documented) at patient's floor/unit and/or counseling patient: Internal Medicine: Result - Labs CBC & Chem 7: 07/21/18 11:57 07/28/18 04:59 Consult Discharge Plan - Plan Additional Instructions: Pt neurocognition continues to improve, will follow loosely, consider D/C pt to appropriate level of care once medically stable. Referrals: NONE,PCP [Primary Care Provider] - - Attending Attestation I examined this patient and my medical decision-making was reviewed with the Resident Physician Dr Moreira. I agree with the documented findings, disposition and treatment plan as described except to the extent set forth below/add details below. Ms Santana was admitted with altered mental status and has been treated for catatonia. She was admitted to the medical service with mild trop elevation with negative work up and ACS ruled out, trichomonas vaginitis s/p treatment with abx. She has had stable copd this admission. She is awaiting eval by [facility] for placement to [facility]. She remains medically stable for dc. awake, no complaints, no sob, cp, palpiations. more spontaneous speech today. States she had an "asthma attack" last night. cannot describe it or symptoms. denies any symptoms now. gen- alert, awake,appears stated age eyes- pupils equal round cv- reg rate and rhythm, normal s1,s2, no murmurs appreciated lungs- ctabl, no wheezing, rhonchi or crackles, normal resp effort on ra neuro- AAOxperson, hospital setting Catatonia- -cont cogentin, risperdal, buspar, prn vistaril Needs placement Waiting on [facility] screen before she is d/c d ECF Medically stable to d/c to ECF Elevated trop at admission- No acute EKG changes No CP TTE showed preserved LVEF< no wall motion abnormality no further work up has been required this admission further diagnoses and plan as documented by resident <Bradley Moreira - Last Filed: 07/29/18 15:38> Hospitalist Progress Note - Encounter Date of Encounter: 07/29/18 Time of Encounter: 09:30 - Subjective Interval History: Mr. Santana is a 57-year-old female past medical history of hypertension, hyperli pidemia, hypothyroidism, COPD who was admitted for altered mental status, and catatonia . During the course of her hospital admission, she was also treated for Trichomonas and is s/p completion of a 7 day course of Flagyl. EKG was unremarkable her echocardiogram which showed diastolic dysfunction. She is currently awaiting the [facility] screening before she can be discharged. - Exam Vitals: Temp Pulse Resp BP Pulse Ox 98.4 F 50 18 91/60 95 07/29/18 07:31 07/29/18 07:31 07/29/18 07:39 07/29/18 07:31 07/29/18 07:39 Exam: General: awake, alert, appears stated age HEENT:EOM intact, pupils equal, round Cardiovascular:regular rate and rhythm, normal S1 & S2, no murmur Lungs:Normal breath sounds, no wheezes, or crackles. Normal respiratory effort on ra Neurological: AAOx to self, follows commands, answers simple questions, does have some slow spontaneous speech Skin:Normal color, warm, dry - Assessment and Plan (1) Elevated troponin Current Visit: Yes Status: Acute Assessment and Plan: - Patient had elevated troponin during his admission stay but then had no ST-T changes in the EKG. There was no evidence of any chest pain, her echocardiogram showed preserved ejection fraction with no wall motion abnormalities or valvular dysfunction. -During her physical exam she is not endorsing any chest pain or palpitations. -At this point I do not think any further workup is needed at least during this admission. However we will continue to monitor his chest pain if she does endo rse in the future. (2) Catatonia Current Visit: Yes Status: Acute Assessment and Plan: - Patient has a history of mood disorder and was evaluated by the psychiatrist during the course of her hospital stay -Is currently on Ativan for catatonia and continues with Cogentin, Risperdal, BuSpar and Vistaril PRN -On physical exam was not catatonic. No evidence of any suicidal or homicidal ideation. -She is waiting [facility] mental health screening before she can get placement at [facility]. (3) Trichomonas vaginitis Current Visit: Yes Status: Acute Assessment and Plan: - Patient had Trichomonas vaginitis infection when she was admitted to the floor. She completed her 7 day course of Flagyl -Endorses no acute discomfort at the moment. (4) Hypothyroid Current Visit: Yes Status: Acute Assessment and Plan: - Has a history of hypothyroidism -Continue with her home dose of levothyroxine (5) COPD (chronic obstructive pulmonary disease) Current Visit: Yes Status: Chronic Assessment and Plan: - Patient has a history of COPD. Albuterol sulfate, and [place] cast as her medications. -Currently she is on room air at 95%, endorsing no shortness of breath, chest pain or palpitations. -Most recent CXR was negative for any effusion or any focal processes of the lungs - Duoneb PRN DVT Prophylaxis: hep sq - Time Spent with Patient Total time spent is greater than 50% in coordination of care (as documented) at patient's floor/unit and/or counseling patient: Internal Medicine: Result - Labs CBC & Chem 7: 07/21/18 11:57 07/28/18 04:59 <Ana M Iniguez - Last Filed: 07/29/18 14:27> (4) Hypothyroid Qualifiers: Hypothyroidism type: unspecified Qualified Code(s): E03.9 - Hypothyroidism, unspecified (5) COPD (chronic obstructive pulmonary disease) Qualifiers: Emphysema type: unspecified Qualified Code(s): J43.9 - Emphysema, unspecified <MoreiraBradley - Last Filed: 07/29/18 15:38> (4) Hypothyroid Qualifiers: Hypothyroidism type: unspecified Qualified Code(s): E03.9 - Hypothyroidism, unspecified (5) COPD (chronic obstructive pulmonary disease) Qualifiers: Emphysema type: unspecified Qualified Code(s): J43.9 - Emphysema, unspecified
[2018-07-29] MEDS: Multivit/Ca/Min/Fe/FA 1 TAB TABLET PO SCH (10:23)
[2018-07-29] MEDS: *HR* LORazepam 1 MG TABLET PO SCH ×3 (10:23→20:32)
[2018-07-29] MEDS: Loratadine 10 MG TABLET PO SCH (10:24)
[2018-07-29] MEDS: RisperiDAL 3 MG TABLET PO SCH ×2 (10:24→20:29)
[2018-07-29] MEDS: (Cyclosporine [Restasis] 1 DROP) OP SCH ×2 (10:30→20:30)
[2018-07-30 05:17] LABS: Basophils % 0.1 %; Eosinophils # 0.1 K/mcL (0.0-0.6); Eosinophils % 0.7 %; Hemoglobin 12.9 g/dL (11.5-15.4); Immature Granulocytes % 0.3 % (0-4); Lymphocytes # 1.6 K/mcL (0.6-4.6); Lymphocytes % 23.4 %; Mean Corpuscular HGB Conc 33.1 g/dL (31.6-35.5); Mean Corpuscular Hemoglobin 31.9 pg (28.0-33.3); Mean Corpuscular Volume 96.5 fL (83.0-100.0); Mean Platelet Volume 10.8 fL (9.4-12.4); Monocytes # 0.7 K/mcL (0.0-1.3); Monocytes % 10.1 %; Neutrophils # 4.4 K/mcL (1.6-8.9); Platelet Count 257 K/mcL (140-400); Red Blood Count 4.04 M/mcL (3.82-4.97); Red Cell Distribution Width 12.7 % (11.5-14.5); Segmented Neutrophils % 65.4 %
[2018-07-30] MEDS: *HR* Heparin 5,000 UNIT/ML VIAL SQ SCH (06:40)
[2018-07-30] MEDS: Budesonide/Formoterol 160/4.5 1 PUFF INH IH SCH (07:54)
--- NOTE | 2018-07-30 07:56 | Discharge Summary ---
<Bradley Moreira - Last Filed: 07/30/18 14:29> - NOTES TO OUTPATIENT PROVIDER Notes to Outpatient Provider: - Continue following up with psychiatry for management of mood disorder and catatonia and for dose adjustments of medications. Date of Encounter: 07/30/18 Time of Encounter: 09:00 - Discharge Diagnosis (1) Elevated troponin Priority: Secondary Status: Acute (2) Catatonia Priority: Primary Status: Acute (3) Trichomonas vaginitis Priority: Secondary Status: Acute (4) Hypothyroid Priority: Secondary Status: Acute Qualifiers: Hypothyroidism type: unspecified Qualified Code(s): E03.9 - Hypothyroidism, unspecified (5) COPD (chronic obstructive pulmonary disease) Priority: Secondary Status: Chronic Qualifiers: Emphysema type: unspecified Qualified Code(s): J43.9 - Emphysema, unspecified Hospital course: Ms. Santana is a 57 year old female with a PMHx of catatonia, mood disorder, hypertension, hyperlipidemia, hypothyroid and COPD who presented to the ER on July 19 due to 'not acting right' . She was found to have an elevated troponin of 0.04 and trichomonas in her urine culture. Her cardiac workup was negative for any ST-T changes. Her head CT and chest x-ray was negative as well. Psychiatry was consulted from the ER, recommended patient be started on Ativan 0.5 mh TID for her catatonic episodes. Patient was started on Flagyl 100 mg IV and she completed her 7 day course for her Trichomonas vaginitis infection. During the course of her hospital stay patient continued to be a home meds of Cogentin, Risperdal, BuSpar and Vistaril PRN. Patient s a medically stable for the last few days and was waiting on [facility] mental health screen before she is d/c to [facility]. - Time Spent with Patient Total time spent providing and/or coordinating discharge services: - Discharge Medications Prescriptions: RX: LORazepam [Ativan] 2 mg PO TID 2 Days tablet Home Medications: RX: Levothyroxine [Synthroid] 88 mcg PO QAM 06/16/16 [History] RX: Loratadine [Claritin] 10 mg PO DAILY 06/16/16 [History] RX: Montelukast [Singulair] 10 mg PO QPM 06/16/16 [History] RX: Multivitamin [Multi-Day Vitamins] 1 tab PO DAILY 06/16/16 [History] RX: Acetaminophen [Tylenol] 1,000 mg PO TID 04/13/17 [History] RX: Albuterol Neb [Proventil Neb] 2.5 mg IH TID 04/13/17 [History] RX: Albuterol Sulfate [Albuterol Inhaler] 2 puff IH Q4HR PRN 04/13/17 [History] RX: Budesonide/Formoterol 160/4.5 [Symbicort 160/4.5] 2 puff IH BIDR 04/13/17 [History] RX: Cyclosporine [Restasis] 1 drop BOTH EYES BID 04/13/17 [History] RX: Benztropine Mesylate 1 mg PO BID 07/19/18 [History] RX: Buspirone HCl [Buspar] 5 mg PO BID 07/19/18 [History] RX: Estrogens, Conjugated [Premarin] 0.3 mg PO DAILY 07/19/18 [History] RX: Pantoprazole Sodium [Protonix] 40 mg PO DAILY 07/19/18 [History] RX: hydrOXYzine HCl [Hydroxyzine HCl] 25 mg PO TID PRN 07/19/18 [History] RX: risperiDONE [RisperDAL] 3 mg PO BID 07/19/18 [History] RX: LORazepam [Ativan] 2 mg PO TID 2 Days tablet 07/30/18 [Rx] Allergies/Adverse Reactions: Allergy/AdvReac Type Severity Reaction Status Date / Time Penicillins Allergy Anaphylaxis Verified 07/03/18 15:12 aspirin AdvReac Gastrointestinal Verified 07/03/18 15:12 Upset caffeine AdvReac Itching Verified 07/03/18 15:12 haloperidol AdvReac Seizure Verified 07/03/18 15:12 Date of admission: 07/28/18 16:35 Primary care physician: PCP NONE Consults: 07/19/18 15:01 Consult to Psychiatry [CONS] Stat Consulting Provider: Psychiatry [place] Reason consult: Other 07/24/18 11:47 Consult to Occupational Therapy [CONS] Stat Comment: Evaluate, develop and implement POC Reason for Consult: WEAKNESS AND DECONSITIONING Does patient have active BEDREST order?: No Is patient medically & hemodynamically stable?: Yes Consult to Physical Therapy [CONS] Stat Comment: Evaluate, develop and implement POC Reason for Consult: WEAKNESS AND DECONSITIONING Does patient have active BEDREST order?: No Is patient medically & hemodynamically stable?: Yes 07/24/18 11:48 Consult to Security Professional [CONS] Routine Reason for SW Consult: PLACEMENT TO SNF - Constitutional Vitals: Temp Pulse Resp BP Pulse Ox 97.9 F 94 17 90/61 92 07/30/18 06:44 07/30/18 06:44 07/30/18 06:44 07/30/18 06:44 07/30/18 06:44 General appearance: Present: no acute distress. Absent: answers questions appropriately Exam: General: awake, alert, appears stated age HEENT:EOM intact, pupils equal, round Cardiovascular:regular rate and rhythm, normal S1 & S2, no murmur Lungs:Normal breath sounds, no wheezes, or crackles. Normal respiratory effort on ra Neurological: AAOx to self, follows commands, answers simple questions, does have some slow spontaneous speech Skin:Normal color, warm, dry - Patient Status Disposition: Transfer SNF Condition: Fair Overall status at discharge: patient is progressing back to baseline - Discharge Instructions Follow Up With: NONE,PCP [Primary Care Provider] - Additional Instructions: -Pt neurocognition continues to improve, will follow loosely, consider D/C pt to appropriate level of care once medically stable. -Continue on bronchodilators for COPD. -Go to the ED immediately if catatonia intensifies or if patient endorses any form of distress. -Continue taking home medications. <Ham Haddad - Last Filed: 07/30/18 18:36> Date of Encounter: 07/30/18 - Discharge Diagnosis (1) Elevated troponin Status: Resolved (2) Catatonia Status: Acute (3) Trichomonas vaginitis Status: Acute (4) Hypothyroid Status: Chronic Qualifiers: Hypothyroidism type: unspecified Qualified Code(s): E03.9 - Hypothyroidism, unspecified (5) COPD (chronic obstructive pulmonary disease) Status: Chronic Qualifiers: COPD type: emphysema Emphysema type: panlobular Qualified Code(s): J43.1 - Panlobular emphysema (6) Second hand smoke exposure Priority: Secondary Status: Chronic (7) Hypokalemia Status: Resolved Hospital course: Ms. Santana is a 57 year old female - Time Spent with Patient Total time spent providing and/or coordinating discharge services: 27min Date of admission: 07/28/18 16:35 Primary care physician: PCP NONE Consults: 07/19/18 15:01 Consult to Psychiatry [CONS] Stat Consulting Provider: Psychiatry [place] Reason consult: Other 07/24/18 11:47 Consult to Occupational Therapy [CONS] Stat Comment: Evaluate, develop and implement POC Reason for Consult: WEAKNESS AND DECONSITIONING Does patient have active BEDREST order?: No Is patient medically & hemodynamically stable?: Yes Consult to Physical Therapy [CONS] Stat Comment: Evaluate, develop and implement POC Reason for Consult: WEAKNESS AND DECONSITIONING Does patient have active BEDREST order?: No Is patient medically & hemodynamically stable?: Yes 07/24/18 11:48 Consult to Security Professional [CONS] Routine Reason for SW Consult: PLACEMENT TO SNF - Constitutional Vitals: Temp Pulse Resp BP Pulse Ox 98.4 F 103 16 98/66 93 07/30/18 11:17 07/30/18 11:17 07/30/18 11:17 07/30/18 11:17 07/30/18 11:17 - Attending Attestation I examined this patient and my medical decision-making was reviewed with the Resident Physician on 07/30/18. I agree with the documented findings, disposi tion and treatment plan as described except to the extent set forth below. Ms Santana has been admitted for catatonia and had slightly elevatedtroponin. She was cleared medically and seen by psychiatry and did not need inpatient psych. She is now afebrile and ready for discharge to SNF. Exam alert Comfortable Mucus membranes dry Heart reg No wheeze abd soft No edema Plan D/C to SNF today
[2018-07-30] MEDS ORDERED: Ondansetron 4 MG/2 ML VIAL IVP ONE ×2 (08:11→08:13)
--- NOTE | 2018-07-30 08:24 | Physician Discharge Referral ---
ExtendedCare Referral Info Transfer To: [facility] - Diagnosis (1) Elevated troponin Priority: Secondary Status: Acute (2) Catatonia Priority: Primary Status: Acute (3) Trichomonas vaginitis Priority: Secondary Status: Acute (4) Hypothyroid Priority: Secondary Status: Acute (5) COPD (chronic obstructive pulmonary disease) Priority: Secondary Status: Chronic - Transfer Medications Prescriptions: LORazepam [Ativan] 2 mg PO TID 2 Days tablet Home Medications: Levothyroxine [Synthroid] 88 mcg PO QAM 06/16/16 [History] Loratadine [Claritin] 10 mg PO DAILY 06/16/16 [History] Montelukast [Singulair] 10 mg PO QPM 06/16/16 [History] Multivitamin [Multi-Day Vitamins] 1 tab PO DAILY 06/16/16 [History] Acetaminophen [Tylenol] 1,000 mg PO TID 04/13/17 [History] Albuterol Neb [Proventil Neb] 2.5 mg IH TID 04/13/17 [History] Albuterol Sulfate [Albuterol Inhaler] 2 puff IH Q4HR PRN 04/13/17 [History] Budesonide/Formoterol 160/4.5 [Symbicort 160/4.5] 2 puff IH BIDR 04/13/17 [History] Cyclosporine [Restasis] 1 drop BOTH EYES BID 04/13/17 [History] Benztropine Mesylate 1 mg PO BID 07/19/18 [History] Buspirone HCl [Buspar] 5 mg PO BID 07/19/18 [History] Estrogens, Conjugated [Premarin] 0.3 mg PO DAILY 07/19/18 [History] Pantoprazole Sodium [Protonix] 40 mg PO DAILY 07/19/18 [History] hydrOXYzine HCl [Hydroxyzine HCl] 25 mg PO TID PRN 07/19/18 [History] risperiDONE [RisperDAL] 3 mg PO BID 07/19/18 [History] LORazepam [Ativan] 2 mg PO TID 2 Days tablet 07/30/18 [Rx] Allergies/Adverse Reactions: Allergy/AdvReac Type Severity Reaction Status Date / Time Penicillins Allergy Anaphylaxis Verified 07/03/18 15:12 aspirin AdvReac Gastrointestinal Verified 07/03/18 15:12 Upset caffeine AdvReac Itching Verified 07/03/18 15:12 haloperidol AdvReac Seizure Verified 07/03/18 15:12 - Respiratory Orders Smoking Cessation: Smoking cessation has been advised. For more information, call the [place] Tobacco Quit Line at 7-699-SOXANOW. CERTIFICATION: I certify that the transfer of the above named patient to an Extended Care Facility is necessary for the continuing treatment of the diagnosis listed. The above information is true and accurate reflection of patient's current condition. Confidential - Redisclosure prohibited without a patient's written consent.
[2018-07-30] MEDS: RisperiDAL 3 MG TABLET PO SCH (08:43)
[2018-07-30] MEDS: *HR* LORazepam 1 MG TABLET PO SCH (08:43)
[2018-07-30] MEDS: Multivit/Ca/Min/Fe/FA 1 TAB TABLET PO SCH (08:44)
[2018-07-30] MEDS: Loratadine 10 MG TABLET PO SCH (08:44)
[2018-07-30 11:18] VITALS: BP 98/66
== END 2018-07-30 14:41 | DRG 757 ==
LOC: EMEROOARM 11:07 → 3BNU 11:07 → SUATTDRO 16:58 → 3BNU 18:49 → SUATTDRO 07-28 16:35
PROVIDERS: ADMIT Internal Medicine Nephrology; ATTEND Internal Medicine

== ENCOUNTER 2019-07-07 18:07 | Observation (INO) ==
[2019-07-07 18:44] LABS: Hematocrit 36.2 % (35.3-44.9); Hemoglobin 12.1 g/dL (11.5-15.4); Immature Granulocytes % 0.3 % (0-4); Lymphocytes # 1.6 K/mcL (0.6-4.6); Lymphocytes % 24.4 %; Mean Corpuscular HGB Conc 33.4 g/dL (31.6-35.5); Mean Corpuscular Hemoglobin 32.5 pg (28.0-33.3); Mean Corpuscular Volume 97.3 fL (83.0-100.0); Mean Platelet Volume 10.7 fL (9.4-12.4); Monocytes # 0.7 K/mcL (0.0-1.3); Monocytes % 9.8 %; Neutrophils # 4.3 K/mcL (1.6-8.9); Platelet Count 240 K/mcL (140-400); Red Blood Count 3.72 M/mcL (3.82-4.97); Red Cell Distribution Width 11.8 % (11.5-14.5); Segmented Neutrophils % 65.5 %; White Blood Count 6.6 K/mcL (4.3-11.1)
[2019-07-07] MEDS ORDERED: Ipratropium/Albuterol Neb 3 ML IH ONE (18:48)
[2019-07-07] MEDS ORDERED: predniSONE 20 MG TABLET PO ONE (18:48)
[2019-07-07 19:21] LABS: BUN/Creatinine Ratio 22 (6-26); Blood Urea Nitrogen 15 mg/dL (6-20); Calcium 9.8 mg/dL (8.6-10.3); Carbon Dioxide 27 mEq/L (23-29); Chloride 101 mEq/L (98-107); Glucose 102 mg/dL (70-105); Osmolality,Calculated 285 (280-300); Potassium 3.8 mEq/L (3.5-5.1); Sodium 137 mEq/L (136-145); Troponin I 0.03 ng/mL (< 0.04); eGFR For African Americans > 60 (> 60); eGFR For Non-African Americans > 60 (> 60)
[2019-07-07] MEDS ORDERED: Aspirin 81 MG TAB.CHEW PO ONE (20:17)
[2019-07-07 21:53] LABS: Amphetamine Screen,Urine Negative ng/mL (Cutoff=1000); Barbiturate Screen,Urine Negative ng/mL (Cutoff=200); Benzodiazepines Screen,Urine Negative ng/mL (Cutoff=200); Cannabinoid Screen,Urine Negative ng/mL (Cutoff = 50); Cocaine Screen,Urine Negative ng/mL (Cutoff= 300); Opiate Screen,Urine Negative ng/mL (Cutoff=300); Phencyclidine Screen,Urine Negative ng/mL (Cutoff=25)
[2019-07-08] MEDS ORDERED: GuaiFENesin Liq 200 MG/10 ML UDC PO PRN (00:49)
[2019-07-08] MEDS ORDERED: hydrOXYzine pamoate 25 MG CAPSULE PO PRN (00:49)
[2019-07-08] MEDS ORDERED: traMADol 50 MG TABLET PO PRN (00:57)
[2019-07-08] MEDS ORDERED: Acetaminophen 325 MG TABLET PO PRN (00:57)
[2019-07-08] MEDS ORDERED: Naloxone 0.4 MG/ML INJ IVP PRN (00:57)
[2019-07-08] MEDS ORDERED: *HR* Promethazine 25 MG/ML VIAL IVP PRN (00:57)
[2019-07-08] MEDS ORDERED: Ipratropium/Albuterol Neb 3 ML IH PRN (01:00)
[2019-07-08] MEDS ORDERED: traZODone 50 MG TABLET PO SCH (01:00)
[2019-07-08] MEDS ORDERED: *HR* LORazepam 1 MG TABLET PO PRN (01:01)
[2019-07-08] MEDS ORDERED: Benzonatate 100 MG CAPSULE PO PRN (01:01)
[2019-07-08 01:25] LABS: Hematocrit 39.9 % (35.3-44.9); Hemoglobin 13.4 g/dL (11.5-15.4); Mean Corpuscular HGB Conc 33.6 g/dL (31.6-35.5); Mean Corpuscular Hemoglobin 32.1 pg (28.0-33.3); Mean Corpuscular Volume 95.5 fL (83.0-100.0); Mean Platelet Volume 10.1 fL (9.4-12.4); Platelet Count 249 K/mcL (140-400); Red Blood Count 4.18 M/mcL (3.82-4.97); Red Cell Distribution Width 11.8 % (11.5-14.5)
[2019-07-08 01:28] LABS: White Blood Count 10.6 K/mcL (4.3-11.1)
[2019-07-08 01:45] LABS: BUN/Creatinine Ratio 21 (6-26); Blood Urea Nitrogen 13 mg/dL (6-20); Carbon Dioxide 25 mEq/L (23-29); Chloride 102 mEq/L (98-107); Chol/HDL Ratio 3.8 (0-4.9); Cholesterol 255 mg/dL (< 200); Glucose 140 mg/dL (70-105); HDL Cholesterol 68 mg/dL (40-59); LDL Cholesterol,Calculated 125 mg/dL (0-99); Magnesium 1.9 mg/dL (1.6-2.6); Osmolality,Calculated 290 (280-300); Potassium 3.9 mEq/L (3.5-5.1); Sodium 139 mEq/L (136-145); Triglycerides 311 mg/dL (< 150); eGFR For African Americans > 60 (> 60); eGFR For Non-African Americans > 60 (> 60)
[2019-07-08 02:01] LABS: Thyroid Stimulating Hormone 0.758 mcIU/mL (0.340-5.600)
[2019-07-08 02:21] LABS: Bacteria,Urine None Seen per hpf (None-Few); Hyaline Casts,Urine None Seen per lpf (None-Few); RBC,Urine 0-3 per hpf (0-3); Squamous Epithelial Cell,Urine Many per lpf (None-Few); WBC,Urine 30-50 per hpf (0-3)
[2019-07-08 02:26] LABS: Bilirubin,Urine Negative (Negative); Clarity,Urine Slightly Cloudy (Clear); Color,Urine Yellow (Yellow); Glucose,Urine (UA) Normal (Normal); Ketones,Urine Negative (Negative); Specific Gravity,Urine 1.014 (1.010-1.025)
[2019-07-08 02:27] LABS: Blood,Urine Negative (Negative); Leukocyte Esterase,Urine Large (Negative); Nitrite,Urine Negative (Negative); Protein,Urine Negative (Neg-Trace); Urobilinogen,Urine Normal (Normal)
[2019-07-08 02:37] LABS: Adenovirus Not Detected (Not Detect); Bordetella Pertussis Not Detected (Not Detect); Chlamydophila pneumoniae Not Detected (Not Detect); Coronavirus 229E Not Detected (Not Detect); Coronavirus HKU1 Not Detected (Not Detect); Coronavirus NL63 Not Detected (Not Detect); Coronavirus OC43 Not Detected (Not Detect); Human Metapneumovirus Not Detected (Not Detect); Human Rhinovirus/Enterovirus Not Detected (Not Detect); Influenza A Subtype 2009 H1 Not Detected (Not Detect); Influenza A Untypeable Not Detected (Not Detect); Influenza B Not Detected (Not Detect); Mycoplasma pneumoniae Not Detected (Not Detect); Parainfluenza Virus 1 Not Detected (Not Detect); Parainfluenza Virus 2 Not Detected (Not Detect); Parainfluenza Virus 3 Not Detected (Not Detect); Parainfluenza Virus 4 Not Detected (Not Detect); Respiratory Syncytial Virus Not Detected (Not Detect)
[2019-07-08] MEDS ORDERED: Regadenoson 0.4 MG/5 ML SYRINGE IVP ONE (06:29)
[2019-07-08] MEDS ORDERED: *HR* LORazepam 2 MG/ML VIAL ONE ×2 (06:57→06:58)
[2019-07-08] MEDS: *HR* LORazepam 2 MG/ML VIAL IVP ONE ×2 (07:09→07:10)
[2019-07-08 07:29] LABS: Estimated Average Glucose 105 mg/dl
[2019-07-08] MEDS ORDERED: Aspirin Enteric Coated 81 MG Tablet PO SCH (09:00)
[2019-07-08] MEDS ORDERED: Famotidine 20 MG TABLET PO SCH (09:00)
[2019-07-08] MEDS ORDERED: NON-FORMULARY MEDICATION 1 EACH EACH (Cetirizine Hcl [All Day Allergy] 10 MG) PO SCH (09:00)
[2019-07-08] MEDS ORDERED: Loratadine 10 MG TABLET PO SCH (09:00)
[2019-07-08] MEDS ORDERED: Tiotropium 18 MCG inhalation IH SCH (10:00)
[2019-07-08] MEDS ORDERED: *HR* Heparin 5,000 UNIT/ML VIAL SQ SCH (14:00)
[2019-07-08 15:49] VITALS: BP 125/89
[2019-07-08] MEDS ORDERED: risperiDONE 1 MG TABLET PO SCH (21:00)
== END 2019-07-08 17:53 | disposition home or self-care (01) ==
LOC: EMEROOARM 18:07 → 3BNU 18:07
PROVIDERS: ADMIT Internal Medicine; ATTEND Internal Medicine